=== PATIENT | male | born 1980 | race Caucasian/White ===

== ENCOUNTER 2021-09-04 07:14 | Outpatient (REF) | payer OTHER, SELFPAY ==
[2021-09-04 11:30] LABS: Appearance Urine CLEAR; Color Urine YELLOW; Glucose Urine UA NEG (NEG); Leukocyte Esterase Urine NEG (NEG); Nitrite Urine NEG (NEG); Urine Blood NEG (NEG); Urine Ketones NEG (NEG); Urine Protein NEG (NEG-TRACE)
[2021-09-04 11:56] LABS: Alanine Aminotransferase 47 U/L (0-40); Albumin Level 4.3 g/dL (3.5-5.0); Alkaline Phosphatase 54 U/L (39-117); Anion Gap 10 (12-20); Aspartate Amino Transferase 28 U/L (5-37); Bilirubin Total 0.5 mg/dL (0.0-1.0); Blood Urea Nitrogen 14 mg/dL (9-16); Calcium 10.1 mg/dL (8.4-10.2); Carbon Dioxide 29 mmol/L (22-29); Chloride 104 mmol/L (96-108); Cholesterol 182 mg/dL; Estimated Glomerular Filt Rate > 60; Glucose Fasting 151 mg/dL (60-99); HDL Cholesterol 41 mg/dL; LDL Cholesterol Calculated 111 mg/dl; Potassium 4.1 mmol/L (3.3-5.1); Sodium 139 mmol/L (135-145); Total Protein 6.9 g/dL (6.5-8.0); Triglycerides 154 mg/dL
== END 2021-09-04 07:15 | disposition home or self-care (01) ==
LOC: HO.WFDLDS 07:14
PROVIDERS: PCP Nurse Practitioner Family; Visit Provider Nurse Practitioner Family
DX: Z00.00 Encounter for general adult medical examination without abnormal findings (principal)
CPT/HCPCS: 36415; 80053; 80061; 81003; 84443

== ENCOUNTER 2021-11-16 09:11 | Outpatient (REF) | payer OTHER, SELFPAY ==
[2021-11-16 11:19] LABS: Appearance Urine CLEAR; Color Urine YELLOW; Glucose Urine UA NEG (NEG); Leukocyte Esterase Urine NEG (NEG); Nitrite Urine NEG (NEG); Specific Gravity - Urine 1.015 (1.005-1.025); Urine Blood NEG (NEG); Urine Ketones NEG (NEG); Urine Protein NEG (NEG-TRACE)
[2021-11-16 11:30] LABS: Estimated Average Glucose 137 mg/dL; Hemoglobin A1c % 6.4 %
[2021-11-16 11:52] LABS: Alanine Aminotransferase 69 U/L (0-40); Albumin Level 4.5 g/dL (3.5-5.0); Alkaline Phosphatase 56 U/L (39-117); Anion Gap 12 (12-20); Aspartate Amino Transferase 34 U/L (5-37); Bilirubin Total 0.6 mg/dL (0.0-1.0); Blood Urea Nitrogen 15 mg/dL (9-16); Calcium 10.1 mg/dL (8.4-10.2); Carbon Dioxide 28 mmol/L (22-29); Chloride 103 mmol/L (96-108); Cholesterol 163 mg/dL; Estimated Glomerular Filt Rate > 60; Glucose Fasting 134 mg/dL (60-99); HDL Cholesterol 40 mg/dL; LDL Cholesterol Calculated 100 mg/dl; Potassium 4.8 mmol/L (3.3-5.1); Sodium 138 mmol/L (135-145); Triglycerides 115 mg/dL
[2021-11-16 11:55] LABS: TSH reflex Free T4 0.51 uIU/mL (0.32-4.0)
== END 2021-11-16 09:12 | disposition home or self-care (01) ==
LOC: HO.HMGCLDS 09:11
PROVIDERS: PCP Nurse Practitioner Family; Visit Provider Nurse Practitioner Family
DX: I10 Essential (primary) hypertension (principal); R73.01 Impaired fasting glucose
CPT/HCPCS: 36415; 80053; 80061; 81003; 83036; 84443

== ENCOUNTER 2021-12-17 08:28 | Outpatient (REF) | payer OTHER, SELFPAY ==
--- NOTE | ~2021-12-17 | US_ITS ---
EXAMINATION: US ABDOMEN COMPLETE CLINICAL INFORMATION: Elevated liver enzymes. COMPARISON: None TECHNIQUE: Real-time imaging of the abdominal viscera. Technically difficult study secondary to bowel gas and body habitus. FINDINGS: PANCREAS: Visualized portions of the pancreas are unremarkable. The pancreatic tail is obscured by bowel gas. ABDOMINAL AORTA: Visualized aorta is normal in caliber however portions are obscured by bowel gas. INFERIOR VENA CAVA: Visualized portions are normal. LIVER: Liver is mildly enlarged measuring 17.1 cm in span. The liver contour is normal. There is diffuse increased liver parenchymal echogenicity, consistent with hepatic steatosis. No focal hepatic lesion. There is no intrahepatic biliary duct dilatation seen. GALLBLADDER: Normal. The gallbladder is physiologically distended without evidence of stones, sludge, polyps, wall thickening or pericholecystic fluid. COMMON BILE DUCT: Normal in caliber measuring 0.6 cm in diameter. RIGHT KIDNEY: 9 mm echogenic foci in the right midpole flow on Doppler imaging. No hydronephrosis or renal calculi. The kidney measures 11.7 cm in maximum dimension. LEFT KIDNEY: Normal. No hydronephrosis. No renal calculi or focal parenchymal lesions. The kidney measures 12.5 cm in maximum dimension. SPLEEN: Normal. The spleen measures 13.6 cm in maximum dimension. FREE FLUID: None. US/US abdomen complete IMPRESSION: A 9 mm echogenic lesion in the right kidney with internal vascularity. Internal vascularity would be atypical for an angiomyolipoma, although this remains a differential consideration. Recommend further elevation with CT or MR renal mass protocol, although ultimately this may remain too small to characterize. Mild hepatomegaly and marked hepatic steatosis.
== END 2021-12-17 08:29 | disposition home or self-care (01) ==
LOC: HO.HMGCX 08:28
PROVIDERS: PCP Nurse Practitioner Family; Visit Provider Nurse Practitioner Family
DX: R74.8 Abnormal levels of other serum enzymes (principal)
CPT/HCPCS: 76700

== ENCOUNTER 2021-12-28 08:21 | Outpatient (REF) | payer OTHER, SELFPAY ==
[2021-12-28 11:47] LABS: Blood Urea Nitrogen 14 mg/dL (9-16); Estimated Glomerular Filt Rate > 60
== END 2021-12-28 08:22 | disposition home or self-care (01) ==
LOC: HO.HMGCLDS 08:21
PROVIDERS: PCP Nurse Practitioner Family; Visit Provider Nurse Practitioner Family
DX: N28.89 Other specified disorders of kidney and ureter (principal)
CPT/HCPCS: 36415; 82565; 84520

== ENCOUNTER 2022-01-02 08:07 | Outpatient (REF) | payer OTHER, SELFPAY ==
--- NOTE | ~2022-01-02 | MR_ITS ---
EXAMINATION: MR ABDOMEN WITHOUT AND WITH CONTRAST CLINICAL INFORMATION: Evaluation of an echogenic lesion in the right kidney noted on a recent ultrasound. COMPARISON: Abdominal ultrasound dated from 12/17/2021. TECHNIQUE: MR abdomen was performed without and with use of 10 mL intravenous Gadavist gadolinium contrast. Postcontrast images are performed in multiphase dynamic sequences. Imaging was performed in 3 planes. FINDINGS: LUNG BASES: The visualized lung bases are unremarkable. LIVER, GALLBLADDER, AND BILIARY TREE: There is signal loss in the opposed-phase dual-echo images, most consistent with hepatic steatosis. Otherwise, the liver is normal in size and shape. No focal liver lesion. Normal gallbladder. No biliary ductal dilatation. PANCREAS: Unremarkable. SPLEEN: Normal. ADRENAL GLANDS: Normal. KIDNEYS AND URETERS: The recently described abnormality in the lateral surface of the midpole of the right kidney appears to correlate with a focal area of fatty indentation/cleft into the cortex (3:9 and 6:12). No other focal renal abnormality. No hydronephrosis. GASTROINTESTINAL TRACT: No bowel obstruction. No ascites or fluid collection. ABDOMINAL WALL: No significant hernia is appreciated. LYMPH NODES: No lymphadenopathy. VASCULAR: Unremarkable. OSSEOUS STRUCTURES: Marrow signal normal. MR/MR abdomen wo/w con IMPRESSION: The abnormality in question appears to correlate with a fatty cleft protruding into the renal cortex, which is a normal anatomic variant. Nevertheless, due to small size of the finding on the ultrasound, there could be a potentially occult abnormality in the MR, and a followup ultrasound in 6-12 months is recommended to ensure stability. Hepatic steatosis.
== END 2022-01-02 08:08 | disposition home or self-care (01) ==
LOC: HO.MRI 08:07
PROVIDERS: Visit Provider Nurse Practitioner Family
DX: N28.89 Other specified disorders of kidney and ureter (principal)
CPT/HCPCS: 74183; A9585

== ENCOUNTER 2022-07-16 07:26 | Outpatient (REF) | payer OTHER, SELFPAY ==
[2022-07-16 11:29] LABS: MANUAL DIFF FLAG NO
[2022-07-16 12:04] LABS: Appearance Urine Turbid; Color Urine Dark Yellow; Glucose Urine UA Negative (Negative); Leukocyte Esterase Urine Negative (Negative); Nitrite Urine Negative (Negative); PH 5.5 (5.0-9.0); Specific Gravity - Urine >= 1.030 (1.005-1.025); Urine Blood Negative (Negative); Urine Ketones Trace mg/dL (Negative); Urine Protein Negative (Neg-Trace)
[2022-07-16 12:18] LABS: Basophils Percent Auto 0.5 % (0-2); Eosinophils Absolute Auto 0.2 X10*3/uL (0.0-0.4); Eosinophils Percent Auto 3.3 % (0-4); Hemoglobin 15.7 g/dl (14.0-18.0); Imm Gran Abs Auto 0.04 X10*3/uL (0.00-0.03); Imm Gran Pct Auto 0.7 % (0.0-0.4); Lymphocytes Absolute Auto 1.9 X10*3/uL (1.2-4.9); Lymphocytes Percent Auto 31.6 % (20-40); Mean Corpuscular HGB Conc 32.7 g/dl (31.0-36.0); Mean Corpuscular Hemoglobin 27.6 pg (27.0-33.0); Mean Corpuscular Volume 84.5 fL (80.0-98.0); Mean Platelet Volume 11.3 fL (9.4-12.4); Monocytes Absolute Auto 0.5 X10*3/uL (0.1-1.2); Monocytes Percent Auto 8.6 % (2-11); Neutrophils Absolute Auto 3.4 x10*3/uL (2.0-8.3); Neutrophils Percent Auto 55.3 % (45-73); Platelet Count 193 X10*3/uL (160-400); Red Blood Count 5.68 X10*6/uL (4.60-5.80); Red Cell Distribution Width 12.2 % (11.0-16.0); White Blood Count 6.1 X10*3/uL (4.8-10.8)
[2022-07-16 12:59] LABS: Alanine Aminotransferase 48 U/L (0-40); Albumin Level 4.4 g/dL (3.5-5.0); Alkaline Phosphatase 55 U/L (39-117); Anion Gap 13 (12-20); Aspartate Amino Transferase 29 U/L (5-37); Bilirubin Total 0.5 mg/dL (0.0-1.0); Blood Urea Nitrogen 16 mg/dL (9-16); Calcium 9.5 mg/dL (8.4-10.2); Carbon Dioxide 27 mmol/L (22-29); Chloride 105 mmol/L (96-108); Cholesterol 184 mg/dL; Estimated Glomerular Filt Rate > 60; Glucose Fasting 180 mg/dL (60-99); Potassium 4.7 mmol/L (3.3-5.1); Sodium 140 mmol/L (135-145); Total Protein 6.8 g/dL (6.5-8.0); Triglycerides 185 mg/dL
[2022-07-16 13:32] LABS: HDL Cholesterol 39 mg/dL; LDL Cholesterol Calculated 108 mg/dl
== END 2022-07-16 07:27 | disposition home or self-care (01) ==
LOC: HO.WFDLDS 07:26
PROVIDERS: Visit Provider Nurse Practitioner Family
DX: N28.89 Other specified disorders of kidney and ureter (principal); R74.8 Abnormal levels of other serum enzymes
CPT/HCPCS: 36415; 80053; 80061; 81003; 84443; 85025

== ENCOUNTER 2022-08-19 16:20 | Outpatient (REF) | payer OTHER, SELFPAY ==
--- NOTE | ~2022-08-19 | US_ITS ---
EXAMINATION: US ABDOMEN COMPLETE CLINICAL INFORMATION: Other specified disorders of the kidney and ureter. COMPARISON: MRI abdomen 01/02/2022. Ultrasound abdomen complete 12/17/2021. TECHNIQUE: Real-time imaging of the abdominal viscera. Technically limited study secondary to bowel gas and body habitus. FINDINGS: PANCREAS: Obscured by overlying bowel gas. ABDOMINAL AORTA: Obscured by overlying bowel gas. INFERIOR VENA CAVA: Visualized portions are normal. LIVER: Liver is enlarged measuring 19.3 cm. The liver contour is normal. There is diffuse increased liver parenchymal echogenicity, consistent with hepatic steatosis. No focal hepatic lesion. There is no intrahepatic biliary duct dilatation seen. GALLBLADDER: Normal. The gallbladder is physiologically distended without evidence of stones, sludge, polyps, wall thickening or pericholecystic fluid. COMMON BILE DUCT: Normal in caliber measuring 0.4 cm in diameter. RIGHT KIDNEY: Upper pole echogenic circumscribed renal mass measures 7 x 8 x 9 mm, avascular in appearance. No hydronephrosis. No renal calculi or focal parenchymal lesions. The kidney measures 10.6 cm in maximum dimension. LEFT KIDNEY: Normal. No hydronephrosis. No renal calculi or focal parenchymal lesions. The kidney measures 11.0 cm in maximum dimension. SPLEEN: Normal. The spleen measures 13.8 cm in maximum dimension. FREE FLUID: None. US/US abdomen complete IMPRESSION: 1. 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 However given vascularity seen on prior ultrasound, recommend continued follow-up to assess for stability. 2. Hepatomegaly with hepatic steatosis.
== END 2022-08-19 16:21 | disposition home or self-care (01) ==
LOC: HO.US 16:20
PROVIDERS: Visit Provider Nurse Practitioner Family
DX: N28.89 Other specified disorders of kidney and ureter (principal); K76.0 Fatty (change of) liver, not elsewhere classified
CPT/HCPCS: 76700

== ENCOUNTER 2022-10-30 09:34 | Outpatient (REF) | payer OTHER, SELFPAY ==
[2022-10-30 11:39] LABS: MANUAL DIFF FLAG NO
[2022-10-30 11:52] LABS: Basophils Percent Auto 0.4 % (0-2); Eosinophils Absolute Auto 0.2 X10*3/uL (0.0-0.4); Eosinophils Percent Auto 2.9 % (0-4); Hematocrit 47.1 % (42.0-52.0); Hemoglobin 16.1 g/dl (14.0-18.0); Imm Gran Abs Auto 0.05 X10*3/uL (0.00-0.03); Imm Gran Pct Auto 0.7 % (0.0-0.4); Lymphocytes Absolute Auto 2.1 X10*3/uL (1.2-4.9); Lymphocytes Percent Auto 29.9 % (20-40); Mean Corpuscular HGB Conc 34.2 g/dl (31.0-36.0); Mean Corpuscular Hemoglobin 28.8 pg (27.0-33.0); Mean Corpuscular Volume 84.1 fL (80.0-98.0); Mean Platelet Volume 11.4 fL (9.4-12.4); Monocytes Absolute Auto 0.5 X10*3/uL (0.1-1.2); Monocytes Percent Auto 6.9 % (2-11); Neutrophils Absolute Auto 4.1 x10*3/uL (2.0-8.3); Neutrophils Percent Auto 59.2 % (45-73); Platelet Count 187 X10*3/uL (160-400); Red Cell Distribution Width 11.7 % (11.0-16.0); White Blood Count 6.9 X10*3/uL (4.8-10.8)
[2022-10-30 12:00] LABS: Estimated Average Glucose 177 mg/dL; Hemoglobin A1c % 7.8 %
[2022-10-30 12:28] LABS: Alanine Aminotransferase 69 U/L (0-40); Albumin Level 4.6 g/dL (3.5-5.0); Alkaline Phosphatase 64 U/L (39-117); Anion Gap 13 (12-20); Aspartate Amino Transferase 36 U/L (5-37); Bilirubin Total 0.7 mg/dL (0.0-1.0); Blood Urea Nitrogen 16 mg/dL (9-16); Calcium 9.9 mg/dL (8.4-10.2); Carbon Dioxide 28 mmol/L (22-29); Chloride 103 mmol/L (96-108); Estimated Glomerular Filt Rate > 60; Glucose Fasting 176 mg/dL (60-99); Potassium 4.7 mmol/L (3.3-5.1); Sodium 139 mmol/L (135-145); TSH reflex Free T4 0.75 uIU/mL (0.32-4.0)
== END 2022-10-30 09:35 | disposition home or self-care (01) ==
LOC: HO.HMGCLDS 09:34
PROVIDERS: PCP Nurse Practitioner Family; Visit Provider Nurse Practitioner Family
DX: E11.9 Type 2 diabetes mellitus without complications (principal)
CPT/HCPCS: 36415; 80053; 83036; 84443; 85025

== ENCOUNTER 2022-12-02 07:49 | Outpatient (REF) | payer OTHER, SELFPAY ==
--- NOTE | ~2022-12-02 | CT_ITS ---
EXAMINATION: CT ABDOMEN AND PELVIS WITHOUT AND WITH CONTRAST CLINICAL INFORMATION: Other specified disorder of kidney and ureter COMPARISON: Previous abdominal ultrasound August 26 and MR of the abdomen January 2022 TECHNIQUE: Multidetector volumetric imaging was performed of the abdomen and pelvis before and after the IV administration of 85 mL of Omnipaque 300 intravenous contrast. Sagittal and coronal reformatted images were obtained on the technologist's workstation. This CT examination was performed using dose optimization techniques as appropriate, variously including the following: *Automated exposure control *Adjustment of mA and/or kV according to patient size (this includes techniques or standardized protocols for targeted exams where dose is matched to indication/reason for exam; i.e. extremities or head) *Use of iterative reconstruction technique DLP: 1260 mGy-cm FINDINGS: LUNG BASES: 3 mm calcified left lower lobe nodule probably representing a calcified granuloma. LIVER, GALLBLADDER, AND BILIARY TREE: fatty liver. No focal liver lesion. Normal gallbladder. No biliary duct dilatation. PANCREAS: Unremarkable SPLEEN: Unremarkable ADRENAL GLANDS: Unremarkable KIDNEYS AND URETERS: The kidneys are normal in size, shape, and attenuation. No hydronephrosis, hydroureter, or calculi seen. Junctional parenchymal defect in the right kidney. This likely accounts for ultrasound finding. No renal mass. No perinephric stranding. BLADDER: Unremarkable GASTROINTESTINAL TRACT: Postsurgical changes from gastric bypass. Mild diverticulosis of the colon. The small and large bowel are otherwise unremarkable. The appendix is unremarkable. ABDOMINAL WALL: Small umbilical hernia containing fat. Small left inguinal hernia containing fat. LYMPH NODES: Normal VASCULAR: Unremarkable PELVIC VISCERA: Unremarkable OSSEOUS STRUCTURES: Mild degenerative changes of the spine. CT/CT abdomen pelvis wo/w IV con IMPRESSION: Normal variant junctional parenchymal defect in the right kidney. No renal mass. Fatty liver. Postsurgical changes following gastric bypass. Mild diverticulosis of the colon. Fleischner guidelines were followed.
[2022-12-02] MEDS: iohexoL 350 MG/ML 100 ML INFUS..BTL IV (08:46)
[2022-12-02 13:14] LABS: Creatinine POC 0.6 mg/dL (0.5-1.4); GFR POC > 60
== END 2022-12-02 07:50 | disposition home or self-care (01) ==
LOC: HO.CT 07:49
PROVIDERS: PCP Nurse Practitioner Family; Visit Provider Nurse Practitioner Family
DX: N28.89 Other specified disorders of kidney and ureter (principal); E11.9 Type 2 diabetes mellitus without complications
CPT/HCPCS: 74178; 82565; Q9967

== ENCOUNTER 2023-01-27 08:16 | Outpatient (REF) | payer OTHER, SELFPAY ==
[2023-01-27 11:16] LABS: MANUAL DIFF FLAG NO
[2023-01-27 11:32] LABS: Appearance Urine Clear; Color Urine Yellow; Glucose Urine UA Negative (Negative); Leukocyte Esterase Urine Negative (Negative); Nitrite Urine Negative (Negative); Specific Gravity - Urine 1.015 (1.005-1.025); Urine Blood Negative (Negative); Urine Ketones Negative (Negative); Urine Protein Negative (Neg-Trace)
[2023-01-27 11:50] LABS: Basophils Percent Auto 0.6 % (0-2); Eosinophils Absolute Auto 0.2 X10*3/uL (0.0-0.4); Eosinophils Percent Auto 3.1 % (0-4); Hematocrit 46.2 % (42.0-52.0); Hemoglobin 15.6 g/dl (14.0-18.0); Imm Gran Abs Auto 0.05 X10*3/uL (0.00-0.03); Imm Gran Pct Auto 0.7 % (0.0-0.4); Lymphocytes Percent Auto 28.4 % (20-40); Mean Corpuscular HGB Conc 33.8 g/dl (31.0-36.0); Mean Corpuscular Hemoglobin 28.8 pg (27.0-33.0); Mean Corpuscular Volume 85.2 fL (80.0-98.0); Mean Platelet Volume 11.7 fL (9.4-12.4); Monocytes Absolute Auto 0.7 X10*3/uL (0.1-1.2); Monocytes Percent Auto 9.2 % (2-11); Neutrophils Absolute Auto 4.1 x10*3/uL (2.0-8.3); Platelet Count 184 X10*3/uL (160-400); Red Blood Count 5.42 X10*6/uL (4.60-5.80); Red Cell Distribution Width 12.3 % (11.0-16.0)
[2023-01-27 12:18] LABS: Alanine Aminotransferase 55 U/L (0-40); Albumin Level 4.4 g/dL (3.5-5.0); Alkaline Phosphatase 50 U/L (39-117); Anion Gap 13 (12-20); Aspartate Amino Transferase 28 U/L (5-37); Bilirubin Total 0.7 mg/dL (0.0-1.0); Blood Urea Nitrogen 12 mg/dL (9-16); Calcium 10.1 mg/dL (8.4-10.2); Carbon Dioxide 28 mmol/L (22-29); Chloride 104 mmol/L (96-108); Cholesterol 95 mg/dL; Estimated Glomerular Filt Rate > 60; Glucose Fasting 129 mg/dL (60-99); HDL Cholesterol 38 mg/dL; LDL Cholesterol Calculated 29 mg/dl; Potassium 4.5 mmol/L (3.3-5.1); Sodium 140 mmol/L (135-145); Total Protein 6.8 g/dL (6.5-8.0); Triglycerides 140 mg/dL
[2023-01-27 12:21] LABS: Microalbumin Urine < 5.0 mg/L
[2023-01-27 12:26] LABS: TSH reflex Free T4 0.66 uIU/mL (0.32-4.0)
== END 2023-01-27 08:17 | disposition home or self-care (01) ==
LOC: HO.WFDLDS 08:16
PROVIDERS: Visit Provider Nurse Practitioner Family
DX: E11.9 Type 2 diabetes mellitus without complications (principal)
CPT/HCPCS: 36415; 80053; 80061; 81003; 82043; 84443; 85025

== ENCOUNTER 2023-05-27 07:50 | Outpatient (REF) | payer OTHER, SELFPAY ==
[2023-05-27 11:13] LABS: MANUAL DIFF FLAG NO
[2023-05-27 11:33] LABS: Basophils Percent Auto 0.4 % (0-2); Eosinophils Absolute Auto 0.2 X10*3/uL (0.0-0.4); Eosinophils Percent Auto 2.4 % (0-4); Hematocrit 47.3 % (42.0-52.0); Hemoglobin 15.7 g/dl (14.0-18.0); Imm Gran Abs Auto 0.04 X10*3/uL (0.00-0.03); Imm Gran Pct Auto 0.6 % (0.0-0.4); Lymphocytes Absolute Auto 1.8 X10*3/uL (1.2-4.9); Lymphocytes Percent Auto 25.6 % (20-40); Mean Corpuscular HGB Conc 33.2 g/dl (31.0-36.0); Mean Corpuscular Hemoglobin 28.1 pg (27.0-33.0); Mean Corpuscular Volume 84.8 fL (80.0-98.0); Mean Platelet Volume 11.1 fL (9.4-12.4); Monocytes Absolute Auto 0.6 X10*3/uL (0.1-1.2); Monocytes Percent Auto 8.5 % (2-11); Neutrophils Absolute Auto 4.5 x10*3/uL (2.0-8.3); Neutrophils Percent Auto 62.5 % (45-73); Platelet Count 200 X10*3/uL (160-400); Red Blood Count 5.58 X10*6/uL (4.60-5.80); Red Cell Distribution Width 12.1 % (11.0-16.0); White Blood Count 7.2 X10*3/uL (4.8-10.8)
[2023-05-27 11:48] LABS: Alanine Aminotransferase 60 U/L (0-40); Albumin Level 4.5 g/dL (3.5-5.0); Alkaline Phosphatase 52 U/L (39-117); Anion Gap 13 (12-20); Aspartate Amino Transferase 33 U/L (5-37); Bilirubin Total 0.6 mg/dL (0.0-1.0); Blood Urea Nitrogen 13 mg/dL (9-16); Carbon Dioxide 27 mmol/L (22-29); Chloride 103 mmol/L (96-108); Cholesterol 97 mg/dL (<200); Estimated Glomerular Filt Rate > 60; Glucose Fasting 134 mg/dL (60-99); HDL Cholesterol 41 mg/dL (>40); LDL Cholesterol Calculated 36 mg/dL (<100); Potassium 4.3 mmol/L (3.3-5.1); Sodium 139 mmol/L (135-145); Total Protein 7.2 g/dL (6.5-8.0); Triglycerides 102 mg/dL (<150)
[2023-05-27 12:13] LABS: TSH reflex Free T4 0.64 uIU/mL (0.32-4.0)
== END 2023-05-27 07:51 | disposition home or self-care (01) ==
LOC: HO.WFDLDS 07:50
PROVIDERS: Visit Provider Nurse Practitioner Family
DX: E11.9 Type 2 diabetes mellitus without complications (principal)
CPT/HCPCS: 36415; 80053; 80061; 84443; 85025

== ENCOUNTER 2023-05-28 07:34 | Outpatient (REF) | payer OTHER, SELFPAY ==
[2023-05-28 11:39] LABS: Appearance Urine Clear; Color Urine Yellow; Glucose Urine UA Negative (Negative); Leukocyte Esterase Urine Negative (Negative); Nitrite Urine Negative (Negative); Urine Blood Negative (Negative); Urine Ketones Negative (Negative); Urine Protein Negative (Neg-Trace)
[2023-05-28 12:40] LABS: Creatinine Urine 149.07 mg/dL
== END 2023-05-28 07:35 | disposition home or self-care (01) ==
LOC: HO.WFDLDS 07:34
PROVIDERS: Visit Provider Nurse Practitioner Family
DX: E11.9 Type 2 diabetes mellitus without complications (principal)
CPT/HCPCS: 81003; 82043; 82570

== ENCOUNTER 2023-05-29 07:56 | Outpatient (AMB) | payer OTHER, SELFPAY ==
--- NOTE | 2023-05-29 07:57 | MHC.PC.OV ---
Vital Signs 05/29/23 08:01 Height 5 ft 9 in Weight 232 lb BMI 34.3 BP 118/80 Blood Pressure Location Lt brachial Position Sitting Pulse 68 Pulse Source Pulse Oximeter Pulse Oximetry (%) 98 Oxygen Delivery Method Room Air Intake Visit Reasons: annual PE/overdue Allergies morphine Allergy (Unknown, Verified 05/29/23 08:01) Skin flushing/hot/vomiting, vomiting Medication List - Last Reconciled 05/29/23 by HARISH Morales Alcohol Prep Pads (alcohol swabs) 1 topically; NS blood-glucose meter,continuous (Dexcom G6 Strategic Client Executive) Use to monitor blood sugars throughout the day/night blood-glucose sensor (Dexcom G6 Sensor device) Use to monitor blood sugars throughout the day/night blood-glucose transmitter (Dexcom G6 Transmitter device) Use to monitor blood sugars throughout the day/night FreeStyle Lancets (lancets) TID testing NS FreeStyle Lite Meter (blood-glucose meter) TID testing NS FreeStyle Lite Strips (blood sugar diagnostic) TID testing NS lisinopril 5 mg PO DAILY 90 days metformin 500 mg PO BID rosuvastatin 5 mg PO DAILY 90 days semaglutide (Ozempic) 0.5 mg (0.736 mL) subcut QWEEK sertraline 100 mg PO DAILY 90 days Tobacco use date assessed: 01/28/23 Dental Screening Dental Screen Date: 05/29/23 Did you have a dental visit in the last 12 months?: Yes Did you have a dental problem in the last 6 months where you did not have access to dental care?: No Was dental information given to patient?: Patient has dentist HPI annual PE/overdue HPI Details Pt is here for a PE. Labs were already performed. Pt is a diabetic, on an HAIM and a statin. A1C in office today is 6.4. Microalbumin is up to date. Denies polyuria, polydipsia, and neuropathy. Pt denies any signs and symptoms of hypoglycemia and does know how to correct it. awaiting CT Coronary angio order, both parents with MIs, mother at age 33, grandfather [place] at age 50, father age 40. Labs already performed, Hx of fatty liver. [facility] Social History Housing: House Patient Tobacco Use Status: Never used Tobacco e-Cigarette/Vaping Use: Never Used Second Hand Smoke Exposure: No service: No Current occupational status: employed Current occupation: [employer] Current occupational exposures/hazards: No Cognitive needs: No Hearing needs: No Vision needs: No Questionnaire AUDIT C Alcohol Use Questionnaire (AUDIT-C) 1. How often do you have a drink containing alcohol?: Monthly or less 2. How many drinks containing alcohol do you have on a typical day when you are drinking?: 1 or 2 3. How often do you have six or more drinks on one occasion?: Never Total Score: 1 Score Reviewed/Action Taken: No Review of Systems Const Denies chills and Denies fever(s) Eyes Denies blurry vision ENT Denies vertigo, Denies dizziness and Denies sore throat Card Denies chest pain at rest, Denies chest pain with activity, Denies diaphoresis, Denies dyspnea and Denies dyspnea on exertion Resp Denies cough, Denies dyspnea, Denies dyspnea on exertion and Denies wheezing GI Denies abdominal pain, Denies melena, Denies hematochezia, Denies constipation, Denies diarrhea and Denies loose stools Denies hematuria Musc Denies numbness and Denies tingling Skin/Breast Denies lesions Neuro Denies vertigo, Denies dizziness, Denies numbness and Denies tingling Psych Denies anxiety, Denies depression, Denies homicidal ideation, Denies suicidal ideation and Denies other (substance abuse) Aller/Immun Denies wheezing Physical exam (Primary Care) Vital Signs: Last Vital Signs Pulse 68 05/29/23 08:01 BP 118/80 05/29/23 08:01 Pulse Ox 98 05/29/23 08:01 Oxygen Delivery Method Room Air 05/29/23 08:01 BMI result Body Mass Index 34.3 Tobacco/Smoking Status: Tobacco use Status Tobacco use date assessed 01/28/23 05/29/23 08:00 Patient Tobacco Use Status Never used Tobacco 05/29/23 08:00 e-Cigarette/Vaping Use Never Used 05/29/23 08:00 Const General: cooperative Nutritional Appearance: obese Orientation/consciousness: patient oriented x3 HENMT Head: Yes normal to inspection, Yes normocephalic and Yes atraumatic Ears: TM's normal bilaterally Eyes General: appearance normal, both eyes and all related structures Alignment and Position: alignment normal and position normal Neck Neck: Yes normal visual inspection and Yes no lymphadenopathy Thyroid: Thyroid normal Resp Effort & Inspection: normal respiratory effort Auscultation: clear to auscultation bilaterally Cardio Rate: regular rate Rhythm: regular rhythm Heart sounds: S1 normal heart sound present, S2 normal heart sound present and no murmurs GI Palpation (GI): Soft to palpation and nontender Auscultation: normal bowel sounds Male General Exam: Yes normal external exam Penis: normal penis Scrotum: scrotum normal, testes descended bilaterally and no inguinal hernias Testes: no testicular mass Skin Other: feet are intact, + sensation with us eof monofilament Rashes: no rashes Neuro General: patient oriented x3, moves all extremities, no focal motor deficits and deep tendon reflexes 2+ bilaterally Romberg Test: Negative Psych Appearance: grossly normal Mental Status: mental status grossly normal Speech and movement: Normal speech and movement present Affect: normal affect Attitude: cooperative Thought process: Normal thought process present Thought content: Normal thought content present Insight: Good insight present (Psych) Judgement: Good judgement present (Psych) Results AMB Hemoglobin A1c AMB Hemoglobin A1c 6.4 % Last Edit by SHARLA Dorsey on 05/29/23 08:16 Results Reviewed Results Reviewed: Laboratory Last Values Hgb A1c (Clinic) 6.4 % (4.0-6.0) H 05/29/23 08:15 Assessment and Plan Assessment & Plan (1) Fatty liver: Code(s): K76.0 - Fatty (change of) liver, not elsewhere classified Plan: Continue to work on diet and limit alcohol use (2) Diabetes: Code(s): E11.9 - Type 2 diabetes mellitus without complications Plan: A1C done in office (3) Family history of [place] (myocardial infarction): Code(s): Z82.49 - Family history of ischemic heart disease and other diseases of the circulatory system Plan: Awaiting CT coronary angio (4) Physical exam: Code(s): Z00.00 - Encounter for general adult medical examination without abnormal findings Plan The patient agreed to the use of a medical microbiologist for this encounter. Scribed for HARISH Dietrich by isabelle Pedroza scribe, on 05/29/2023 at 08:10 EST Orders: Orders AMB Hemoglobin A1c Today Z13.9 - Encounter for screening, unspecified Coding Level of Care Code Est Pt Prev Care 40-64y(91644) Diagnoses Fatty liver K76.0 Diabetes E11.9 Family history of [place] (myocardial infarction) Z82.49 Physical exam Z00.00
[2023-05-29 08:01] VITALS: BP 118/80; PULSE 68; O2SAT 98; BMI 34.3
== END 2023-05-29 08:33 | disposition home or self-care (01) ==
PROVIDERS: PCP Nurse Practitioner Family; Visit Provider Nurse Practitioner Family
DX: Z00.00 Encounter for general adult medical examination without abnormal findings (principal); E11.9 Type 2 diabetes mellitus without complications; K76.0 Fatty (change of) liver, not elsewhere classified; Z82.49 Family history of ischemic heart disease and other diseases of the circulatory system
CPT/HCPCS: 83036; 99396

== ENCOUNTER 2023-12-22 07:10 | Outpatient (AMB) | payer BC, SELFPAY ==
--- NOTE | 2023-12-22 07:03 | MHC.PC.OV ---
Intake Visit Reasons: Follow up Allergies morphine Allergy (Unknown, Verified 12/22/23 07:16) Skin flushing/hot/vomiting, vomiting Medication List - Last Reconciled 12/22/23 by HARISH Morales Alcohol Prep Pads (alcohol swabs) 1 topically; NS blood-glucose meter,continuous (Dexcom G6 Feather Duster Winder) Use to monitor blood sugars throughout the day/night blood-glucose sensor (Dexcom G6 Sensor device) Use to monitor blood sugars throughout the day/night blood-glucose transmitter (Dexcom G6 Transmitter device) Use to monitor blood sugars throughout the day/night FreeStyle Lancets (lancets) TID testing NS FreeStyle Lite Meter (blood-glucose meter) TID testing NS FreeStyle Lite Strips (blood sugar diagnostic) TID testing NS lisinopril 5 mg PO DAILY 90 days metformin 500 mg PO BID rosuvastatin 5 mg PO DAILY 90 days semaglutide (Ozempic) 0.5 mg (0.736 mL) subcut QWEEK venlafaxine 100 mg PO DAILY Tobacco use date assessed: 01/28/23 Dental Screening Dental Screen Date: 05/29/23 HPI Follow up HPI Details Pt is a diabetic, on an HAIM and a statin. Last A1C was 6.4, due for repeat. Microalbumin is up to date. Denies polyuria, polydipsia, and neuropathy. Pt denies any signs and symptoms of hypoglycemia and does know how to correct it. Pt reports that his blood sugar has been well-controlled. Will order labs. Pt is currently on effexor for anxiety/depression. He reports doing well on this med. He recently started a new job. Denies any SI and HI. pt is seeing a psychiatrist, did not connect with therapist he was assigned to, will consider restarting therapy in the future. [facility] Social History Housing: House Patient Tobacco Use Status: Never used Tobacco e-Cigarette/Vaping Use: Never Used Second Hand Smoke Exposure: No service: No Current occupational status: employed Current occupation: [employer] Current occupational exposures/hazards: No Cognitive needs: No Hearing needs: No Vision needs: No Review of Systems Const Reports as per HPI Physical exam (Primary Care) Tobacco/Smoking Status: Tobacco use Status Tobacco use date assessed 01/28/23 12/22/23 07:05 Patient Tobacco Use Status Never used Tobacco 12/22/23 07:05 e-Cigarette/Vaping Use Never Used 12/22/23 07:05 Const General: cooperative Orientation/consciousness: patient oriented x3 Neuro General: patient oriented x3 Psych Appearance: grossly normal Mental Status: mental status grossly normal Speech and movement: Clear speech present Affect: normal affect Attitude: cooperative Thought process: Normal thought process present Thought content: Normal thought content present Insight: Good insight present (Psych) Judgement: Good judgement present (Psych) Telehealth Telehealth Telehealth Platform: [employer] Location of provider rendering services: practice address Location of patient: address on file Patient Identification confirmed using: Name, : Yes Telehealth method: video Patient verbally consented to treatment: Yes Patient verbally consented to billing insurance company: Yes Patient informed of any privacy concerns related to visit: Yes Minutes spent on Phone/Video with Pt.: 10 Assessment and Plan Assessment & Plan (1) Diabetes: Code(s): E11.9 - Type 2 diabetes mellitus without complications Plan: Labs ordered (2) Anxiety and depression: Code(s): F41.9 - Anxiety disorder, unspecified; F32.9 - Major depressive disorder, single episode, unspecified Plan: on effexor, tolerating medication well, has a psychiatrist Plan The patient agreed to the use of a senior medical transcriptionist for this encounter. Scribed for HARISH Dietrich by Katie Ann senior medical transcriptionist, on 12/22/2023 at 07:05 EST. Orders: Orders Complete Blood Count Auto Diff Today E11.9 - Type 2 diabetes mellitus without complications Comprehensive [place]. Panel Fast Today E11.9 - Type 2 diabetes mellitus without complications TSH reflex Free T4 Today E11.9 - Type 2 diabetes mellitus without complications Lipid Panel Today E11.9 - Type 2 diabetes mellitus without complications UA CC w/rflx Micro + Cult Today E11.9 - Type 2 diabetes mellitus without complications Hemoglobin A1c Today E11.9 - Type 2 diabetes mellitus without complications Medications: Refilled blood-glucose transmitter (Dexcom G6 Transmitter device) Use to monitor blood sugars throughout the day/night 1 ea 1RF E11.9 - Type 2 diabetes mellitus without complications semaglutide (Ozempic) 0.5 mg (0.736 mL) subcut QWEEK 9 mL 1RF blood-glucose meter,continuous (Dexcom G6 Feather Duster Winder) Use to monitor blood sugars throughout the day/night 1 ea 0RF E11.9 - Type 2 diabetes mellitus without complications blood-glucose sensor (Dexcom G6 Sensor device) Use to monitor blood sugars throughout the day/night 3 ea 5RF E11.9 - Type 2 diabetes mellitus without complications lisinopril 5 mg PO DAILY 90 days 90 tabs 1RF metformin 500 mg PO BID 180 tabs 1RF rosuvastatin 5 mg PO DAILY 90 days 90 tabs 1RF Discontinued sertraline Discontinued Reason: Doctor's Order 100 mg PO DAILY 90 days 90 tabs 1RF Coding Level of Care Code Tele Est Pt Level 3 (99544) Diagnoses Diabetes E11.9 Anxiety and depression F41.9; F32.9
== END 2023-12-22 09:17 | disposition home or self-care (01) ==
LOC: HO.HMGC 07:10
PROVIDERS: PCP Nurse Practitioner Family; Visit Provider Nurse Practitioner Family
DX: E11.9 Type 2 diabetes mellitus without complications (principal); F41.9 Anxiety disorder, unspecified; F32.9 Major depressive disorder, single episode, unspecified
CPT/HCPCS: 99213

== ENCOUNTER 2024-03-11 08:18 | Outpatient (AMB) | payer OTHER, BC, SELFPAY ==
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
[2024-03-11 08:54] VITALS: BP 114/80; PULSE 81; TEMP 37; O2SAT 98; BMI 34.3
== END 2024-03-11 09:19 | disposition home or self-care (01) ==
PROVIDERS: PCP Nurse Practitioner Family; Visit Provider Physician Assistant
DX: G44.311 Acute post-traumatic headache, intractable (principal); V89.2XXA Person injured in unspecified motor-vehicle accident, traffic, initial encounter
CPT/HCPCS: 99214

== ENCOUNTER 2024-03-11 09:37 | Emergency (ER) | payer OTHER, BC, SELFPAY ==
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
[2024-03-11 09:51] VITALS: BP 152/91; PULSE 79; RESP 16; TEMP 36.5; O2SAT 98; BMI 33.3
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
[2024-03-11] MEDS: Acetaminophen 325 MG TABLET 975 MG PO (11:19)
[2024-03-11] MEDS: Butalb/Acetamin/Caff 50/325/40 TABLET 1 TAB PO (14:07)
[2024-03-11 14:16] VITALS: BP 152/91; PULSE 79; RESP 16; TEMP 36.5; O2SAT 98
== END 2024-03-11 14:17 | disposition home or self-care (01) ==
PROVIDERS: Emergency Provider Student in an Organized Health Care Education/Training Program; PCP Nurse Practitioner Family
DX: S09.90XA Unspecified injury of head, initial encounter (principal); V43.52XA Car driver injured in collision with other type car in traffic accident, initial encounter; Y93.89 Activity, other specified; Y92.410 Unspecified street and highway as the place of occurrence of the external cause; Y99.9 Unspecified external cause status
CPT/HCPCS: 70450; 99283; 99284

== ENCOUNTER 2024-05-03 09:34 | Outpatient (REF) | payer OTHER, BC, SELFPAY ==
[2024-05-03 13:20] LABS: MANUAL DIFF FLAG NO
[2024-05-03 13:26] LABS: Basophils Percent Auto 0.4 % (0-2); Eosinophils Absolute Auto 0.2 X10*3/uL (0.0-0.4); Eosinophils Percent Auto 2.7 % (0-4); Hematocrit 48.5 % (42.0-52.0); Hemoglobin 16.1 g/dl (14.0-18.0); Imm Gran Abs Auto 0.04 X10*3/uL (0.00-0.03); Imm Gran Pct Auto 0.6 % (0.0-0.4); Lymphocytes Percent Auto 29.9 % (20-40); Mean Corpuscular HGB Conc 33.2 g/dl (31.0-36.0); Mean Corpuscular Hemoglobin 28.8 pg (27.0-33.0); Mean Corpuscular Volume 86.8 fL (80.0-98.0); Mean Platelet Volume 11.1 fL (9.4-12.4); Monocytes Absolute Auto 0.5 X10*3/uL (0.1-1.2); Monocytes Percent Auto 7.1 % (2-11); Neutrophils Percent Auto 59.3 % (45-73); Platelet Count 196 X10*3/uL (160-400); Red Blood Count 5.59 X10*6/uL (4.60-5.80); Red Cell Distribution Width 12.1 % (11.0-16.0); White Blood Count 6.7 X10*3/uL (4.8-10.8)
[2024-05-03 13:42] LABS: Estimated Average Glucose 143 mg/dL; Hemoglobin A1c % 6.6 % (<6.0)
[2024-05-03 14:01] LABS: Alanine Aminotransferase 74 U/L (0-40); Albumin Level 4.6 g/dL (3.5-5.0); Alkaline Phosphatase 52 U/L (39-117); Anion Gap 13 (12-20); Aspartate Amino Transferase 36 U/L (5-37); Bilirubin Total 0.7 mg/dL (0.0-1.0); Blood Urea Nitrogen 15 mg/dL (9-16); Calcium 10.3 mg/dL (8.4-10.2); Carbon Dioxide 28 mmol/L (22-29); Chloride 105 mmol/L (96-108); Cholesterol 106 mg/dL (<200); Estimated Glomerular Filt Rate > 60; Glucose Fasting 146 mg/dL (60-99); HDL Cholesterol 41 mg/dL (>40); LDL Cholesterol Calculated 40 mg/dL (<100); Sodium 141 mmol/L (135-145); TSH reflex Free T4 0.42 uIU/mL (0.32-4.0); Total Protein 7.2 g/dL (6.5-8.0); Triglycerides 129 mg/dL (<150)
== END 2024-05-03 09:35 | disposition home or self-care (01) ==
LOC: HO.HMGCLDS 09:34
PROVIDERS: PCP Nurse Practitioner Family; Visit Provider Nurse Practitioner Family
DX: E11.9 Type 2 diabetes mellitus without complications (principal)
CPT/HCPCS: 36415; 80053; 80061; 83036; 84443; 85025

== ENCOUNTER 2024-05-05 07:15 | Outpatient (REF) | payer BC, SELFPAY ==
[2024-05-05 10:08] LABS: Appearance Urine Clear; Color Urine Yellow; Glucose Urine UA Negative (Negative); Leukocyte Esterase Urine Negative (Negative); Nitrite Urine Negative (Negative); Urine Blood Negative (Negative); Urine Ketones Negative (Negative); Urine Protein Negative (Neg-Trace)
== END 2024-05-05 07:16 | disposition home or self-care (01) ==
LOC: HO.HMGCLNP 07:15
PROVIDERS: PCP Nurse Practitioner Family; Visit Provider Nurse Practitioner Family
DX: E11.9 Type 2 diabetes mellitus without complications (principal); K76.0 Fatty (change of) liver, not elsewhere classified; Z79.899 Other long term (current) drug therapy; Z71.3 Dietary counseling and surveillance
CPT/HCPCS: 81003; 96127

== ENCOUNTER 2024-05-05 07:55 | Outpatient (AMB) | payer OTHER, BC, SELFPAY ==
[2024-05-05 07:57] VITALS: BP 118/80; PULSE 80; O2SAT 97; BMI 34.4
--- NOTE | 2024-05-05 07:57 | MHC.PC.OV ---
Vital Signs 05/05/24 07:57 Height 5 ft 9 in Weight 233 lb BMI 34.4 BP 118/80 Blood Pressure Location Rt brachial Position Sitting Pulse 80 Pulse Source Pulse Oximeter Pulse Oximetry (%) 97 Intake Visit Reasons: 4M F/U Intake Note: pt is here for 4 month follow up Allergies morphine Allergy (Unknown, Verified 05/05/24 07:58) Skin flushing/hot/vomiting, vomiting Tobacco use date assessed: 05/05/24 Dental Screening Dental Screen Date: 05/05/24 Did you have a dental visit in the last 12 months?: Yes Did you have a dental problem in the last 6 months where you did not have access to dental care?: No Was dental information given to patient?: Patient has dentist HPI 4M F/U HPI Details Pt is a diabetic, on an HAIM and a statin. Last A1C was 6.6. Due for microalbumin in the near future. Denies polyuria, polydipsia, and neuropathy. Pt denies any signs and symptoms of hypoglycemia and does know how to correct it. Pt will schedule his own eye exam. Pt's liver enzymes were elevated. Hx of fatty liver. Pt is working on his diet. [facility] Surgical History No pertinent past surgical history Social History Housing: House Patient Tobacco Use Status: Never used Tobacco e-Cigarette/Vaping Use: Never Used Second Hand Smoke Exposure: No service: No Current occupational status: employed Current occupation: [employer] Current occupational exposures/hazards: No Cognitive needs: No Hearing needs: No Vision needs: No Questionnaire PHQ-9 Over the last 2 weeks, how often have you been bothered by any of the following problems? 1. Little interest or pleasure in doing things: several days 2. Feeling down, depressed, or hopeless: several days 3. Trouble falling or staying asleep, or sleeping too much: more than half the days 4. Feeling tired or having little energy: more than half the days 5. Poor appetite or overeating: more than half the days 6. Feeling bad about yourself - or that you are a failure or have let yourself or your family down: not at all 7. Trouble concentrating on things, such as reading the newspaper or watching television: several days 8. Moving or speaking so slowly that other people could have noticed. Or the opposite - being so fidgety or restless that you have been moving around a lot more than usual: not at all 9. Thoughts that you would be better off or of hurting yourself in some way: not at all Total score: 9 Depression Screening Interpretation: Negative Depression Screening Done: Yes 98829 - PHQ-9 Billing: Yes (has a psychiatrist, working on a therapist, denies any si or hi. [employer]) Source: Developed by Drs. Matt Nicholson, Britt Guillermo, Adis Alvarez and colleagues, with an educational sandy from [employer]. Thrive Questionnaire Date Thrive assessed: 05/05/24 I am a: Patient What is your living situation today?: I have a steady place to live Within the past 12 months, did the food you bought not last and you didn't have the money to get more?: Never true Within the past 12 months, did you worry whether your food would run out before you got money to buy more?: Never true Do you have trouble paying for medicines?: No Do you have trouble getting transportation to medical appointments?: No Do you have trouble paying your heating and electricity bill?: No Do you have trouble taking care of your child, family member or friend?: No Do you have trouble with day-to-day activities such as bathing, preparing meals, shopping, managing finances, etc.?: No Are you interested in more education?: No Please select the resources that you would like help with: None Currently or been in a relationship where the following occur: No concerns reported THRIVE Score: 0 AUDIT C Alcohol Use Questionnaire (AUDIT-C) 1. How often do you have a drink containing alcohol?: 2-4 times a month 2. How many drinks containing alcohol do you have on a typical day when you are drinking?: 1 or 2 3. How often do you have six or more drinks on one occasion?: Never Total Score: 2 Score Reviewed/Action Taken: Yes DEAN-7 AMB Questionnaire DEAN-7 Date DEAN - 7 assessed: 05/05/24 Feeling nervous, anxious, or on edge: 2 = More than half the days Not being able to stop or control worryin = More than half the days Worrying too much about different things: 2 = More than half the days Trouble relaxin = More than half the days Being so restless that it is hard to sit still: 1 = Several days Becoming easily annoyed or irritable: 1 = Several days Feeling afraid as if something awful might happen: 0 = Not at all Total DEAN-7 score (0-4 normal; 5-9 mild; 10-14 moderate; 15-21 severe): 10 Source: Developed by Drs. Matt Nicholson, Britt Guillermo, Adis Alvarez and colleagues, with an educational sandy from [employer]. DEAN-7 Assessment Billing DEAN-7 Assessment Tool: DEAN-7 Assessment 97309 (psychiatrist, working on therapist, tanner) Review of Systems Const Reports as per HPI Physical exam (Primary Care) Vital Signs: Last Vital Signs Pulse 80 05/05/24 07:57 BP 118/80 05/05/24 07:57 Pulse Ox 97 05/05/24 07:57 BMI result Body Mass Index 34.4 Tobacco/Smoking Status: Tobacco use Status Tobacco use date assessed 05/05/24 05/05/24 08:03 Patient Tobacco Use Status Never used Tobacco 05/05/24 07:58 e-Cigarette/Vaping Use Never Used 05/05/24 07:58 PHQ-9: PHQ-9 Score PHQ-9: Total score 9 05/05/24 08:12 Depression Screening Interpretation: Negative Thrive Assessment: Date of Thrive Assessment Date Thrive assessed 05/05/24 05/05/24 08:03 Currently or been in a relationship where the following occur: No concerns reported Const General: cooperative Nutritional Appearance: obese Orientation/consciousness: patient oriented x3 Resp Effort & Inspection: normal respiratory effort Auscultation: clear to auscultation bilaterally Cardio Rate: regular rate Rhythm: regular rhythm Heart sounds: S1 normal heart sound present and S2 normal heart sound present Neuro General: patient oriented x3 Extrem Other: bilat feet: + sensation with use of monofilament, feet intact Psych Appearance: grossly normal Mental Status: mental status grossly normal Speech and movement: Normal speech and movement present Affect: normal affect Attitude: cooperative Thought process: Normal thought process present Thought content: Normal thought content present Insight: Good insight present (Psych) Judgement: Good judgement present (Psych) Coding Level of Care Code Est Pt Level 3 (46228) Diagnoses Diabetes E11.9 Fatty liver K76.0 Additional Codes DEAN-7 Assessment Billing - DEAN-7 Assessment Tool: DEAN-7 Assessment 17380 ([id number]) Assessment & Plan Assessment & Plan (1) Diabetes: Code(s): E11.9 - Type 2 diabetes mellitus without complications Category: Medical Plan: Continue current meds (2) Fatty liver: Code(s): K76.0 - Fatty (change of) liver, not elsewhere classified Category: Medical Plan: Continue to work on diet Plan The patient agreed to the use of a medical director of hospice for this encounter. Scribed for HARISH Dietrich by Katie Ann medical director of hospice, on 05/05/2024 at 08:15 EST. Medications: Changed From venlafaxine 37.5 mg PO DAILY To venlafaxine 37.5 mg PO DAILY 90 days 90 tabs 0RF
== END 2024-05-05 11:48 | disposition home or self-care (01) ==
PROVIDERS: PCP Nurse Practitioner Family; Visit Provider Nurse Practitioner Family
DX: E11.9 Type 2 diabetes mellitus without complications (principal); K76.0 Fatty (change of) liver, not elsewhere classified

== ENCOUNTER → 2024-05-05 07:55 | Outpatient (BNVA) | payer OTHER, BC, SELFPAY | PROVIDERS: PCP Nurse Practitioner Family; Visit Provider Nurse Practitioner Family ==

== ENCOUNTER 2024-06-14 07:30 | Outpatient (AMB) | payer OTHER, BC, SELFPAY ==
--- NOTE | 2024-06-14 07:38 | A.OFFPC_ITS ---
Vital Signs 06/14/24 07:41 Height 5 ft 9 in Weight 228 lb BMI 33.7 BP 110/80 Blood Pressure Location Rt brachial Position Sitting Pulse 81 Pulse Source Pulse Oximeter Pulse Oximetry (%) 97 Oxygen Delivery Method Room Air Intake Visit Reasons: PE Intake Note: Pt is here today for his PE Allergies morphine Allergy (Unknown, Verified 05/05/24 07:58) Skin flushing/hot/vomiting, vomiting Medication List - Last Reconciled 06/14/24 by HARISH Morales Alcohol Prep Pads (alcohol swabs) 1 topically; NS blood-glucose meter,continuous (Dexcom G6 Feeder/Folder) Use to monitor blood sugars throughout the day/night blood-glucose sensor (Dexcom G6 Sensor device) Use to monitor blood sugars throughout the day/night blood-glucose transmitter (Dexcom G6 Transmitter device) Use to monitor blood sugars throughout the day/night clonidine HCl 0.1 mg PO DAILY FreeStyle Lancets (lancets) TID testing NS FreeStyle Lite Meter (blood-glucose meter) TID testing NS FreeStyle Lite Strips (blood sugar diagnostic) TID testing NS lisinopril 5 mg PO DAILY 90 days metformin 500 mg PO BID methylphenidate HCl 5 mg PO DAILY methylphenidate HCl 10 mg PO DAILY rosuvastatin 5 mg PO DAILY 90 days semaglutide (Ozempic) 0.5 mg (0.736 mL) subcut QWEEK sertraline 25 mg PO QAM venlafaxine 37.5 mg PO DAILY 90 days Tobacco use date assessed: 06/14/24 Dental Screening Dental Screen Date: 06/14/24 Did you have a dental visit in the last 12 months?: Yes Did you have a dental problem in the last 6 months where you did not have access to dental care?: Yes Was dental information given to patient?: Patient has dentist HPI PE HPI Details Pt is here for a PE. Will order labs. PFSH Surgical History No pertinent past surgical history Social History Housing: House Patient Tobacco Use Status: Never used Tobacco e-Cigarette/Vaping Use: Never Used Second Hand Smoke Exposure: No service: No Current occupational status: employed Current occupation: [employer] Current occupational exposures/hazards: No Cognitive needs: No Hearing needs: No Vision needs: Yes Questionnaire PHQ-9 Over the last 2 weeks, how often have you been bothered by any of the following problems? 26284 - PHQ-9 Billing: Patient declined-do not bill Source: Developed by Drs. Matt Nicholson, Britt Guillermo, Adis Alvarez and colleagues, with an educational sandy from [employer]. Thrive Questionnaire Date Thrive assessed: 06/14/24 I am a: Patient What is your living situation today?: I have a steady place to live Within the past 12 months, did the food you bought not last and you didn't have the money to get more?: Never true Within the past 12 months, did you worry whether your food would run out before you got money to buy more?: Never true Do you have trouble paying for medicines?: No Do you have trouble getting transportation to medical appointments?: No Do you have trouble paying your heating and electricity bill?: No Do you have trouble taking care of your child, family member or friend?: No Do you have trouble with day-to-day activities such as bathing, preparing meals, shopping, managing finances, etc.?: No Are you currently unemployed and looking for a job?: I choose not to answer this question Are you interested in more education?: No Please select the resources that you would like help with: None Currently or been in a relationship where the following occur: No concerns reported THRIVE Score: 0 DEAN-7 AMB Questionnaire DEAN-7 Date DEAN - 7 assessed: 05/05/24 Source: Developed by Drs. Matt Nicholson, Britt Guillermo, Adis Alvarez and colleagues, with an educational sandy from [employer]. Review of Systems Const Denies chills and Denies fever(s) Eyes Denies blurry vision ENT Denies vertigo, Denies dizziness and Denies sore throat Card Denies chest pain at rest, Denies chest pain with activity, Denies diaphoresis, Denies dyspnea and Denies dyspnea on exertion Resp Denies cough, Denies dyspnea, Denies dyspnea on exertion and Denies wheezing GI Denies abdominal pain, Denies melena, Denies hematochezia, Denies constipation, Denies diarrhea and Denies loose stools Denies hematuria Musc Denies numbness and Denies tingling Skin/Breast Denies lesions Neuro Denies vertigo, Denies dizziness, Denies numbness and Denies tingling Psych Denies anxiety, Denies depression, Denies homicidal ideation, Denies suicidal ideation and Denies other (substance abuse) Aller/Immun Denies wheezing Physical exam (Primary Care) Vital Signs: Last Vital Signs Pulse 81 06/14/24 07:41 BP 110/80 06/14/24 07:41 Pulse Ox 97 06/14/24 07:41 Oxygen Delivery Method Room Air 06/14/24 07:41 BMI result Body Mass Index 33.7 Tobacco/Smoking Status: Tobacco use Status Tobacco use date assessed 06/14/24 06/14/24 07:43 Patient Tobacco Use Status Never used Tobacco 06/14/24 07:39 e-Cigarette/Vaping Use Never Used 06/14/24 07:39 Thrive Assessment: Date of Thrive Assessment Date Thrive assessed 06/14/24 06/14/24 07:43 Currently or been in a relationship where the following occur: No concerns reported Const General: cooperative Nutritional Appearance: well nourished and obese Orientation/consciousness: patient oriented x3 HENMT Head: Yes normal to inspection, Yes normocephalic and Yes atraumatic Ears: TM's normal bilaterally Eyes General: appearance normal, both eyes and all related structures Alignment and Position: alignment normal and position normal Neck Neck: Yes normal visual inspection, Yes no lymphadenopathy and Yes supple Resp Effort & Inspection: normal respiratory effort Auscultation: clear to auscultation bilaterally Cardio Rate: regular rate Rhythm: regular rhythm Heart sounds: S1 normal heart sound present, S2 normal heart sound present and no murmurs GI Palpation (GI): Soft to palpation and nontender Auscultation: normal bowel sounds Male General Exam: Yes normal external exam Penis: normal penis Scrotum: scrotum normal, testes descended bilaterally and no inguinal hernias Testes: no testicular mass Skin Rashes: no rashes Neuro General: patient oriented x3, moves all extremities, no focal motor deficits and deep tendon reflexes 2+ bilaterally Romberg Test: Negative Psych Appearance: grossly normal Mental Status: mental status grossly normal Speech and movement: Normal speech and movement present Affect: normal affect Attitude: cooperative Thought process: Normal thought process present Thought content: Normal thought content present Insight: Good insight present (Psych) Judgement: Good judgement present (Psych) Coding Level of Care Code Est Pt Prev Care 40-64y(59209) Diagnoses Physical exam Z00.00 Assessment & Plan Assessment & Plan (1) Physical exam: Code(s): Z00.00 - Encounter for general adult medical examination without abnormal findings Category: Medical Plan: Labs ordered Plan The patient agreed to the use of a rn medical surgical for this encounter. Scribed for HARISH Dietrich by Katie Ann rn medical surgical, on 06/14/2024 at 07:45 EST. Orders: Orders Comprehensive [place]. Panel Fast Today Z00.00 - Encounter for general adult medical examination without abnormal findings TSH reflex Free T4 Today Z00.00 - Encounter for general adult medical examination without abnormal findings Lipid Panel Today Z00.00 - Encounter for general adult medical examination without abnormal findings Complete Blood Count Auto Diff Today Z00.00 - Encounter for general adult medical examination without abnormal findings UA CC w/rflx Micro + Cult Today Z00.00 - Encounter for general adult medical examination without abnormal findings
[2024-06-14 07:41] VITALS: BP 110/80; PULSE 81; O2SAT 97; BMI 33.7
== END 2024-06-14 08:20 | disposition home or self-care (01) ==
PROVIDERS: PCP Nurse Practitioner Family; Visit Provider Nurse Practitioner Family
DX: Z23 Encounter for immunization (principal); Z00.00 Encounter for general adult medical examination without abnormal findings

== ENCOUNTER → 2024-06-14 07:30 | Outpatient (BNVA) | payer OTHER, BC, SELFPAY | PROVIDERS: PCP Nurse Practitioner Family; Visit Provider Nurse Practitioner Family | DX: Z00.00 Encounter for general adult medical examination without abnormal findings (principal); Z23 Encounter for immunization | CPT/HCPCS: 90471; 90677 ==

== ENCOUNTER 2025-02-01 16:02 | Outpatient (AMB) | payer BC, SELFPAY ==
--- NOTE | 2025-02-01 16:06 | A.OFFPC_ITS ---
Vital Signs 02/01/25 16:07 Height 5 ft 9 in Weight 224 lb BMI 33.1 BP 112/80 Blood Pressure Location Lt brachial Position Sitting Pulse 90 Pulse Source Pulse Oximeter Pulse Oximetry (%) 97 Intake Visit Reasons: Follow up DM [place] Required: No Accompanied by: Self / Same As Patient Allergies morphine Allergy (Unknown, Verified 02/01/25 16:07) Skin flushing/hot/vomiting, vomiting Medication List - Last Reconciled 02/01/25 by CARRIE MoralesP-BC blood-glucose sensor (Dexcom G6 Sensor device) Use to monitor blood sugars throughout the day/night blood-glucose transmitter (Dexcom G6 Transmitter device) Use to monitor blood sugars throughout the day/night blood-glucose,jig builder helper,cont (Dexcom G6 [employer] Writer) Use to monitor blood sugars throughout the day/night clonidine HCl 0.1 mg PO DAILY FreeStyle Lancets (lancets) TID testing NS FreeStyle Lite Meter (blood-glucose meter) TID testing NS FreeStyle Lite Strips (blood sugar diagnostic) TID testing NS lisinopril 5 mg PO DAILY metformin 500 mg PO BID 90 days methylphenidate HCl 5 mg PO DAILY methylphenidate HCl 10 mg PO DAILY rosuvastatin 5 mg PO DAILY semaglutide 1 mg (0.75 mL) subcut QWEEK venlafaxine 37.5 mg PO DAILY 90 days Tobacco use date assessed: 02/01/25 Dental Screening Dental Screen Date: 02/01/25 Did you have a dental visit in the last 12 months?: Yes Did you have a dental problem in the last 6 months where you did not have access to dental care?: No Was dental information given to patient?: Patient has dentist HPI Follow up DM HPI Details Chief Complaint The patient presents for follow-up management of diabetes mellitus. History of Present Illness The patient is a 44-year-old male presenting with follow-up for diabetes management. His diabetes is currently managed with metformin, and his A1c level is 7.0, prompting an adjustment in his medication dosage. The plan includes increasing the morning dose of metformin to 1000 mg while maintaining the evening dose at 500 mg. He denies any symptoms such as nausea, vomiting, or neuropathy, and his feet show positive sensation with monofilament testing. His eye examination is current, and he understands the importance of regular lab work for ongoing monitoring. Social History Health Maintenance - Eye exam is up to date Review of Systems - Neurological: Denies nausea, vomiting, or neuropathy Physical Exam General: Cooperative, healthy appearing, comfortable, no acute distress and well developed, obese Orientation: Patient oriented x3 Limitations: No limitations Head: Normal to inspection Ears: Hearing grossly normal bilaterally Nose: Normal external nose present Face and sinus: Normal facial exam Eyes: Appearance normal, both eyes and all related structures Neck: Normal visual inspection and Yes full ROM Respiratory: Normal respiratory effort and able to speak in complete sentences. Clear to auscultation bilaterally Cardiovascular: Regular rate and rhythm. Normal S1 and S2 GI: Normal to inspection. Soft to palpation and nontender Skin: No rashes or lesions noted Neuro: Patient oriented x3 Extremities: Normal to inspection. Feet intact bilaterally with positive sensation using monofilament. Results - Labs: Hemoglobin A1c is 7.0 Plan The patient's diabetes management plan involves increasing the morning dose of metformin to 1000 mg while maintaining the evening dose at 500 mg. He should continue monitoring his blood glucose levels and complete lab work as discussed. A follow-up appointment is planned in four months to evaluate the effectiveness of the medication adjustment and overall diabetes management. Discussion Notes I discussed with the patient the current status of his diabetes management and the need to adjust his metformin dosage to better control his blood glucose levels. We reviewed the importance of regular lab work and scheduled a follow-up appointment in four months to reassess his condition. Patient Instructions - Increase morning dose of metformin to 1000 mg, keep evening dose at 500 mg - Monitor blood glucose levels regularly - Complete lab work as discussed - Follow up in four months [facility] Medical History Impingement of left shoulder ADHD Surgical History No pertinent past surgical history Social History Housing: House Patient Tobacco Use Status: Never used Tobacco e-Cigarette/Vaping Use: Never Used Second Hand Smoke Exposure: No service: No Current occupational status: employed Current occupation: [employer] Current occupational exposures/hazards: No Cognitive needs: No Hearing needs: No Vision needs: Yes Questionnaire Thrive Questionnaire Date Thrive assessed: 02/01/25 AUDIT C Alcohol Use Questionnaire (AUDIT-C) 1. How often do you have a drink containing alcohol?: 2-4 times a month 2. How many drinks containing alcohol do you have on a typical day when you are drinking?: 1 or 2 3. How often do you have six or more drinks on one occasion?: Never Total Score: 2 Score Reviewed/Action Taken: Yes DEAN-7 AMB Questionnaire DEAN-7 Date DEAN - 7 assessed: 05/05/24 Source: Developed by Drs. Matt Nicholson, Britt Guillermo, Adis Alvarez and colleagues, with an educational sandy from [employer]. Physical exam (Primary Care) Vital Signs: Last Vital Signs Pulse 90 02/01/25 16:07 BP 112/80 02/01/25 16:07 Pulse Ox 97 02/01/25 16:07 BMI result Body Mass Index 33.1 Tobacco/Smoking Status: Tobacco use Status Tobacco use date assessed 02/01/25 02/01/25 16:07 Patient Tobacco Use Status Never used Tobacco 02/01/25 16:07 e-Cigarette/Vaping Use Never Used 02/01/25 16:07 Thrive Assessment: Date of Thrive Assessment Date Thrive assessed 02/01/25 02/01/25 16:07 Results AMB Hemoglobin A1c AMB Hemoglobin A1c 7.0 % Last Edit by Scotty Hummel CMA on 02/01/25 16: 25 Results Reviewed Results Reviewed: Laboratory Last Values Hgb A1c (Clinic) 7.0 % (4.0-6.0) H 02/01/25 16:24 Coding Level of Care Code Est Pt Level 3 (72015) Diagnoses Diabetes E11.9 Assessment & Plan Assessment & Plan (1) Diabetes: Code(s): E11.9 - Type 2 diabetes mellitus without complications Category: Medical Plan . Orders: Orders Microalbumin, Random (w Creat) Today E11.9 - Type 2 diabetes mellitus without complications AMB Hemoglobin A1c Today Z13.9 - Encounter for screening, unspecified Medications: Changed From metformin 500 mg PO BID 180 tabs 1RF To metformin 2 tabs am and 1 tab pm 500 mg PO BID 270 tabs 0RF 90 days
[2025-02-01 16:07] VITALS: BP 112/80; PULSE 90; O2SAT 97; BMI 33.1
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
== END 2025-02-01 17:00 | disposition home or self-care (01) ==
LOC: HO.HMCC 16:02
PROVIDERS: PCP Nurse Practitioner Family; Visit Provider Nurse Practitioner Family
DX: Z13.9 Encounter for screening, unspecified (principal); E11.9 Type 2 diabetes mellitus without complications

== ENCOUNTER → 2025-02-01 16:02 | Outpatient (BNVA) | payer BC, SELFPAY | PROVIDERS: PCP Nurse Practitioner Family; Visit Provider Nurse Practitioner Family | DX: E11.9 Type 2 diabetes mellitus without complications (principal); Z79.84 Long term (current) use of oral hypoglycemic drugs | CPT/HCPCS: 83036 ==

== ENCOUNTER 2025-04-14 07:02 | Outpatient (AMB) | payer BC, SELFPAY ==
--- OUTSIDE RECORDS SUMMARY | 2020-03-19 10:40 | XMS_ITS | Encounter Summary ---
Author Organization [facility] Address [address] [facility] [address] [place] [phone] Phone Care Team Providers Care Vehicle Check In Clerk Name Role Phone Chad Sawyer MD Unavailable Unknown, Unknown Primary Care Provider Rylee roberto Encounter Details Date Type Department Care Team (Late st Contact Info) Description 03/19/2020 10:40 AM EDT Hospital Encounter [facility] [address] [place] [phone] Carlie Bernstein CNP [address] [place] [phone] [email or web address] Social History Tobacco Use Types Packs/Day [...] 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 POS [id number] Narrative 03/19/2020 10:56 AM EDT 3 views. [...] Nondisplaced distal fifth metatarsal shaft fracture. POS [id number] Carlie Bernstein [employer] LIBRARY DIRECTOR IMG XR LOWER EXTREMITY Maxine l Result documented in this encounter Visit Diagnoses Not on filedocumented in this encounter Additional Health Concerns Assessment Noted Time PHQ-2 Depression Total Score: 0 10/21/19 18 3:26 PM EDT documented as of this encounter Care Teams Vehicle Check In Clerk Relationship Specialty Start Date End Date Unknown, Unknown, PCP - General 03/19/20 05/14/22 Chad Sawyer MD [email or web address] Internal Medicine 10/21/17 documented as of this encounter Additional Source Comments The information contained in this document represents components of the legal health record. It is not the complete legal health record.[facility]
--- OUTSIDE RECORDS SUMMARY | 2025-04-14 07:06 | XMS_ITS | Clinical Summary ---
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 Active b complex vitamins tablet Acti ve zinc 50 mg Tab tablet Take 50 mg by mouth daily. Active cholecalciferol (VITAMIN D3) 5,000 unit tablet Take 5,000 Units by mouth daily. Active ascorbic acid, vitamin C, (VITAMIN C) 1000 MG tablet Take 1,000 mg by mouth 4 (four) times a day. 2 tablets in the morning, 2 tablets in the evening Active cyanocobalamin, vitamin B-12, 1000 MCG tablet Take 1,000 mcg by mouth daily. Active vitamin A 48223 UNIT capsule Take 25,000 Units by mouth daily. Active PEDIATRIC MULTIVITAMIN NO.76 (FLINTSTONES COMPLETE ORAL) Take 2 tablets by mouth daily. Active CALCIUM CITRATE/VITAMIN D3 (CITRACAL + D PETITES ORAL) Take 500 Units by mouth 2 (two) times a day. Active MAGNESIUM OXIDE/MAGNESIUM (MAGNESIUM, OXIDE/AA CHELATE, ORAL) Take 325 mg by mouth daily. Active lisinopril (PRINIVIL,ZESTRIL ) 5 MG tablet Take 5 mg by mouth daily. 2 Active sertraline (ZOLOFT) 100 MG tablet Take 100 mg by mouth daily. 2 Active aspirin 81 mg chewable tablet Take 81 mg by mouth daily. Active Active Problems Problem Noted Date Diagnosed Date History of Gisselle-en-Y gastric bypass 10/20/2017 Family history of early CAD 10/20/2017 Immunizations Immunization Administration Dates Next Due COVID-19 (Pre) Urban Remedy Vaccine, mRNA, PF COVID-19 (Pre) Pfizer Vaccine, mRNA, huong-sucrose, PF 05/23/2021,11/19/2020 Influenza Quadrivalent MDCK Preservative Free IM 06/08/2020 Influenza Quadrivalent Preservative Free IM 10/02 Influenza Quadrivalent w/ Preservative IM 2018 Influenza, Unspecified Formulation 04/16/2018 MMR 08/04/2016 Td (adult) 5 Lf Tetanus Toxoid, PF, Adsorbed 08/2016 Tdap 10/20/2017 Family History Medical History Relation Comments CABG Father Diabetes Father Smoker Epilepsy Father Heart attack Father Multiple Kidney failure Father Dx late 30s. Sta rting dialysis. Stroke Father Cognitive defici ts Heart disease Maternal Grandfather Diabetes Maternal Grandmother Heart disease Maternal Grandmother Stroke Maternal Grandmother Anxiety disorder Mother COPD Mother Smoker Coronary artery disease Mother Stents Heart attack Mother x 2 in her 50s Hypertension Mother Obesity Mother Other Paternal Grandfather of katie ck lung, miner pick Other Paternal Grandmother V fib Diabetes Sister 1 S/P Gisselle en Y Hypertension Sister 1 Obesity Sister 1 Diabetes Sister 2 Hypertension Sister 2 Obesity Sister 2 S/P Gisselle en Y Breast cancer Neg Hx Colon cancer Neg Hx Prostate cancer Neg Hx Relation Status Comments Father Alive Maternal Grandfather Maternal Grandmother Mother Alive Paternal Grandfather Paternal Grandmother (Age 92) Sister 1 Alive Sister 2 Alive Social History Tobacco Use Types Packs/Day Years [...] 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 on file Not on file Not on fi le Last Filed Vital Signs Vital Sign Reading Time Taken Comments Blood Pressure 142/89 05/15/2022 5:34 PM EDT Pulse 86 05/15/2022 5:34 PM EDT Temperature 36.6 C (97.9 F) 05/15/2022 5:34 PM EDT Respiratory Rate 20 05/15/2022 5:34 PM EDT Oxygen Saturation 96% 05/15/2022 5:34 PM EDT Inhaled Oxygen Concentration - - Weight 111.1 kg (245 lb) 05/15/2022 5:34 PM EDT Height 175.3 cm (5' 9 ) 05/15/2022 5:34 PM EDT Body Mass Index 36.18 05/15/2022 5:34 PM EDT Plan of Treatment Health Maintenance Due Date Last Done Comments HEPATITIS C SCREENING 02/08/2000 HIV ONE-TIME SCREENING (18-65 YEARS) 02/08/2000 HEPATITIS A VACCINES (1 of 2 - Risk 2-dose series) 2001 DEPRESSION SCREENING 10/20/2018 10/20/2017 CREATININE LEVEL 10/21/2018 10/21/2017 POTASSIUM LEVEL 10/21/2018 10/21/2017 SCREENING FOR DIABETES 10/21/2020 10/21/2017 LIPID PANEL 10/21/2022 10/21/2017 INFLUENZA VACCINE (#1) 2025 , 06/08/2020, 05/04/2019, Additional history exists COVID-19 VACCINE ( season) 2025 05/23/2021, 05/23/2021, 11/19/2020, Additional history exists Adult Td,Tdap Booster 10/21/2027 10/20/2017, 017 SMOKING STATUS SCREENING (Once After 26 Yrs) Completed 05/15/2022 HIB VACCINES Aged Out No longer eligi ble based on patient's age to complete this topic MENINGOCOCCAL VACCINES (ACWY) Aged Out No longer eligible based on patient's age to complete this topic MENINGOCOCCAL VACCINES (B) Aged Out N o longer eligible based on patient's age to complete this topic PNEUMOCOCCAL VACCINES (0-49 years) Aged Out No longer eligible based on patient's age to complete this topic Medical Devices Not on file Procedures Procedure Name Priority Date/Time Associated Diagnosis Comments LIPID PANEL Routine 10/21/2017 10:07 AM EDT Class 1 obesity due to excess calories without serious comorbidity with body mass index (BMI) of 32.0 to 32.9 in adult COMPREHENSIVE METABOLIC PANEL Routine 10/21/2017 10:07 AM EDT Class 1 obesity due to excess calories without serious comorbidity with body mass index (BMI) of 32.0 to 32.9 in adult Malaise and fatigue History of type 2 diabetes mellitus from Last 3 Months or Most Recently Relevant to Health Maintenance Results * (ABNORMAL) Comprehensive metabolic panel (10/21/2017 10:07 AM EDT) SODIUM 144 133 - 146 mmol/L [facility] POTASSIUM 4.2 3.3 - 5.1 mmol/L [facility] CHLORIDE 104 96 - 108 mmol/L [facility] CO2 30 21 - 35 mmol/L [facility] BUN 14 6 - 19 mg/dL [facility] CREATININE 0.70 0.5 - 1.5 mg/dL [facility] GLUCOSE 105(H) 70 - 99 mg/dL [facility] ALBUMIN 4.6 3.9 - 4.8 g/dL [facility] TOTAL PROTEIN 7.5 6.5 - 8.0 g/dL [facility] CALCIUM 9.9 8.4 - 10.3 mg/dL [facility] ALKALINE PHOSPHATASE 89 39 - 117 U/L [facility] TOTAL BILIRUBIN 0.6 0.0 - 1.2 mg/dL [facility] AST 30 0 - 37 U/L [facility] ALT 47(H) 0 - 40 U/L [facility] GLOBULIN 2.9 1 - 4.8 g/dL [facility] EGFR >120 >59 mL/min/1.7 3m2 [facility] Comment:If patient is black, multiply result by 1.159. The eGFR calculation has changed from the MDRD equation to the CKD-EPI equation as of October 07, 2017. ANION GAP 14 10 - 20 mmol/L [facility] Blood 10/21/2017 10:0 7 AM EDT 10/21/2017 10:10 AM EDT [facility] LAB BLOOD ORDERABLES Maxine l Result [address] [address] * (ABNORMAL) Lipid panel (10/21/2017 10:07 AM EDT) HDL 46 mg/dL [facility] Comment: Interpretation: Risk Level Males Decreased >45 mg/dL Average 40-45 mg/dL Increased <40 mg/dL CHOLESTEROL 129 0 - 240 mg/dL [facility] TRIGLYCERIDES 85 30 - 160 mg/dL [facility] LDL 66 50 - 129 mg/dL [facility] Comment: LDL levels in terms of risk for coronary heart disease: <100 mg/dL: Optimal 100-129 mg/dL: Near or above optimal 130-159 mg/dL: Borderline high 160-189 mg/dL: High >190 mg/dL: Very High CARDIAC RISK RATIO 2.8(L) 3.4 - 5.0 C [facility] Blood 10/21/2017 10:0 7 AM EDT 10/21/2017 10:10 AM EDT [facility] Maxine l Result Performing Organization Address City/[facility]/ZIP Co de Phone Number [address] [address] from Last 3 Months or Most Recently Relevant to Health Maintenance Insurance [facility] [place] [address] [address] [place] [address] [facility] [place] [facility] HMO [facility] D[facility] Care Teams 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 It is not the complete legal health record.[facility]
--- NOTE | 2025-04-14 07:30 | MHC.PC.OV ---
Intake Visit Reasons: FMLA Allergies morphine Allergy (Unknown, Verified 04/14/25 07:30) Skin flushing/hot/vomiting, vomiting Medication List - Last Reconciled 04/14/25 by HARISH Morales blood-glucose sensor (Dexcom G6 Sensor device) Use to monitor blood sugars throughout the day/night blood-glucose transmitter (Dexcom G6 Transmitter device) Use to monitor blood sugars throughout the day/night blood-glucose,circuit breaker mechanic,cont (Dexcom G6 Safety Security Officer) Use to monitor blood sugars throughout the day/night clonidine HCl 0.1 mg PO DAILY duloxetine 60 mg PO DAILY FreeStyle Lancets (lancets) TID testing NS FreeStyle Lite Meter (blood-glucose meter) TID testing NS FreeStyle Lite Strips (blood sugar diagnostic) TID testing NS lisinopril 5 mg PO DAILY metformin 500 mg PO BID 90 days methylphenidate HCl 5 mg PO DAILY methylphenidate HCl 10 mg PO DAILY rosuvastatin 5 mg PO DAILY semaglutide 1 mg (0.75 mL) subcut QWEEK Tobacco use date assessed: 02/01/25 Dental Screening Dental Screen Date: 02/01/25 HPI FMLA HPI Details History of Present Illness The patient is a 45-year-old male presenting with panic disorder and anxiety disorder. He recently sought crisis intervention due to ongoing panic attacks and anxiety, and has since been under the care of a psychiatrist and a therapist, whom he sees weekly. The patient was previously on Effexor, which has been discontinued, and he is now prescribed Cymbalta. He reports feeling calmer and is able to hold his thoughts better than before. The patient is currently on leave from work since March 28, 2025, due to burnout from working over 60 hours a week, affecting his mental, physical, psychological health. He agrees with the decision to take time off to recuperate, as he was experiencing physical, mental, and psychological exhaustion. He denies any suicidal or homicidal ideations and is receiving appropriate treatment. Review of Systems - Psychiatric: Reports panic attacks and anxiety. Denies suicidal or homicidal ideations. Plan 1. Panic Disorder The patient is currently under the care of a psychiatrist and a therapist, with weekly sessions to manage his panic disorder. He has been switched from Effexor to Cymbalta, which appears to be effective as he reports feeling calmer and more focused. Follow-up with his psychiatrist is scheduled for May 04, and he is advised to remain off work until July 04 to allow for recovery. 2. Anxiety Disorder The patient is receiving ongoing therapy and medication management for his anxiety disorder. He is advised to continue his current treatment regimen and follow up with his psychiatrist as planned. 3. Burnout Syndrome The patient is advised to remain on leave from work until July 04 to recover from burnout syndrome. Long-term disability forms have been completed to support his leave from work. Discussion Notes I discussed with the patient the importance of continuing his current treatment plan, including medication and therapy, to manage his panic and anxiety disorders. We agreed on the necessity of taking time off work to recover from burnout, and I completed the necessary disability forms to support this decision. The patient is scheduled for a follow-up with his psychiatrist on May 04, and I will see him again in June to reassess his condition. Patient Instructions - Continue taking Cymbalta as prescribed. - Attend weekly therapy sessions. - Follow up with your psychiatrist on May 04. - Remain off work until July 04 to allow for recovery. [facility] Medical History Impingement of left shoulder ADHD Surgical History No pertinent past surgical history Social History Housing: House Patient Tobacco Use Status: Never used Tobacco e-Cigarette/Vaping Use: Never Used Second Hand Smoke Exposure: No service: No Current occupational status: employed Current occupation: [employer] Current occupational exposures/hazards: No Cognitive needs: No Hearing needs: No Vision needs: Yes Questionnaire Thrive Questionnaire Date Thrive assessed: 05/05/24 I am a: Patient What is your living situation today?: I have a steady place to live Within the past 12 months, did the food you bought not last and you didn't have the money to get more?: Never true Within the past 12 months, did you worry whether your food would run out before you got money to buy more?: Never true Do you have trouble paying for medicines?: No Do you have trouble getting transportation to medical appointments?: No Do you have trouble paying your heating and electricity bill?: No Do you have trouble taking care of your child, family member or friend?: No Do you have trouble with day-to-day activities such as bathing, preparing meals, shopping, managing finances, etc.?: No Are you currently unemployed and looking for a job?: I choose not to answer this question Are you interested in more education?: No Please select the resources that you would like help with: None Currently or been in a relationship where the following occur: No concerns reported THRIVE Score: 0 DEAN-7 AMB Questionnaire DEAN-7 Date DEAN - 7 assessed: 05/05/24 Source: Developed by Drs. Matt Nicholson, Britt Guillermo, Adis Alvarez and colleagues, with an educational sandy from [employer]. Physical exam (Primary Care) Tobacco/Smoking Status: Tobacco use Status Tobacco use date assessed 02/01/25 02/01/25 16:07 Patient Tobacco Use Status Never used Tobacco 02/01/25 16:07 e-Cigarette/Vaping Use Never Used 02/01/25 16:07 Thrive Assessment: Date of Thrive Assessment Date Thrive assessed 05/05/24 04/14/25 07:03 Currently or been in a relationship where the following occur: No concerns reported Telehealth Telehealth Telehealth Platform: [facility] Location of provider rendering services: practice address Location of patient: address on file Patient Identification confirmed using: Name, : Yes Telehealth method: video Patient verbally consented to treatment: Yes Patient verbally consented to billing insurance company: Yes Patient informed of any privacy concerns related to visit: Yes Minutes spent on Phone/Video with Pt.: 22 Coding Level of Care Code Tele Est Pt Level 4 (73679) Diagnoses Anxiety and depression F41.9; F32.9 Assessment & Plan Assessment & Plan (1) Anxiety and depression: Code(s): F41.9 - Anxiety disorder, unspecified; F32.9 - Major depressive disorder, single episode, unspecified Category: Medical Plan .
== END 2025-04-14 16:48 | disposition home or self-care (01) ==
LOC: HO.HMCC 07:03
PROVIDERS: PCP Nurse Practitioner Family; Visit Provider Nurse Practitioner Family
DX: F41.9 Anxiety disorder, unspecified (principal); F32.9 Major depressive disorder, single episode, unspecified

== ENCOUNTER 2025-06-20 10:06 | Outpatient (REF) | payer BC, SELFPAY ==
--- OUTSIDE RECORDS SUMMARY | 2020-03-19 09:40 | XMS_ITS | Encounter Summary ---
Author Organization [facility] Address [address] [facility] [address] [place] [phone] Phone Care Team Providers Care Chief Meter Reader Name Role Phone Chad Sawyer MD Unavailable Unknown, Unknown Primary Care Provider Rylee roberto Encounter Details Date Type Department Care Team (Late st Contact Info) Description 03/19/2020 10:40 AM EDT Hospital Encounter [facility] [address] [place] [address] Carlie Bernstein CNP [address] [place] [phone] [email or web address] Social History Tobacco Use Types Packs/Day Years [...] 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 POS [id number] Narrative 03/19/2020 10:56 AM EDT 3 views. [...] Nondisplaced distal fifth metatarsal shaft fracture. POS [id number] Carlie Bernstein STEEL LAYER IMG XR LOWER EXTREMITY Maxine l Result documented in this encounter Visit Diagnoses Not on filedocumented in this encounter Additional Health Concerns Assessment Noted Time PHQ-2 Depression Total Score: 0 10/21/19 18 3:26 PM EDT documented as of this encounter Care Teams Chief Meter Reader Relationship Specialty Start Date End Date Unknown, Unknown, PCP - General 03/19/20 05/14/22 Chad Sawyer MD [email or web address] Internal Medicine 10/21/17 documented as of this encounter Additional Source Comments The information contained in this document represents components of the legal health record. It is not the complete legal health record.[facility]
[2025-06-20 13:06] LABS: MANUAL DIFF FLAG NO
[2025-06-20 13:18] LABS: Appearance Urine Clear; Glucose Urine UA Negative (Negative); PH 6.5 (5.0-9.0); Specific Gravity - Urine 1.020 (1.005-1.025); UMIC TRIGGER UACC YES
[2025-06-20 13:35] LABS: Hematocrit 45.6 % (42.0-52.0); Hemoglobin 15.1 g/dl (14.0-18.0); Imm Gran Abs Auto 0.02 X10*3/uL (0.00-0.03); Imm Gran Pct Auto 0.4 % (0.0-0.4); Lymphocytes Absolute Auto 1.7 X10*3/uL (1.2-4.9); Mean Corpuscular HGB Conc 33.1 g/dl (31.0-36.0); Mean Corpuscular Hemoglobin 28.2 pg (27.0-33.0); Mean Corpuscular Volume 85.1 fL (80.0-98.0); NRBC Abs Auto 0.000 X10*3/uL (0.0-0.012); NRBC Pct Auto 0.0 /100WBC (0.0-0.2); Platelet Count 191 X10*3/uL (160-400); Red Blood Count 5.36 X10*6/uL (4.60-5.80); White Blood Count 5.6 X10*3/uL (4.8-10.8)
[2025-06-20 13:43] LABS: Microalbum/Creatinine Ratio Ur 3.8 ug/mg cr (<30)
[2025-06-20 13:59] LABS: Alanine Aminotransferase 69 U/L (0-40); Albumin Level 4.5 g/dL (3.5-5.0); Alkaline Phosphatase 62 U/L (39-117); Anion Gap 11 (12-20); Aspartate Amino Transferase 47 U/L (5-37); Blood Urea Nitrogen 13 mg/dL (9-16); Calcium 9.4 mg/dL (8.4-10.2); Carbon Dioxide 26 mmol/L (22-29); Chloride 104 mmol/L (96-108); Cholesterol 105 mg/dL (<200); Estimated Glomerular Filt Rate > 60; HDL Cholesterol 38 mg/dL (>40); Potassium 4.4 mmol/L (3.3-5.1); Sodium 137 mmol/L (135-145); Total Protein 6.8 g/dL (6.5-8.0); Triglycerides 116 mg/dL (<150)
--- OUTSIDE RECORDS SUMMARY | 2025-06-20 21:02 | XMS_ITS | Data Portability ---
Author Organization [facility], [facility] Address [address] [place] [address] Care Team Providers Care Snubber Name Role Phone MATTIE MULLEN Primary Care Provider [phone] Assessment Encounter Date Assessment Date Assessment LastModified [...] functional movements such as reaching and self-care. [email or web address] Not available 12/01/2024 18:46:52 12/13/2024 12/13/2024 Assessment: [...] stretching at end ranges of shoulder ROM. [email or web address] Not available 12/15/2024 08:03:08 12/15/2024 12/15/2024 Assessment:Moder [...] stretching at end ranges of shoulder ROM. Not available 12/15/2024 18:59:06 12/29/2024 12/29/2024 Assessment:Good toleration to increased resistance for prone exercises. introduced to lat pull downs. Pt able to complete with no adverse effects. Reviewed and updated HEP. Plan: DC to HEP [email or web address] Not available 12/29/2024 18:50:16 Plan of Treatment [...] Recorded Time Pain of left shoulder joint [id number] 9109 Active 2023 ESTER JORDAN [facility] 4 14:14:48 Impingement syndrome of left shoulder region 0012278606967 04 Active 2024 Chad schroeder PA-C [address], [place], [address], [facility] 5 09:41:41 Problem Notes None recorded. Procedures Surgical History Date Name Laterality Status Provider Name and Address Organization Details Recorded Time 5 65983: Therapeutic Activities (1:1) completed Jennifer Gallo, ACCOUNT MANAGEMENT ASSISTANT [address] [facility], [place], [address], [facility] 12/29/2024 17:59:05 5 88341 Therapeutic Exercise (1:1) completed Jennifer Gallo, ACCOUNT MANAGEMENT ASSISTANT [address], [place], [address], [facility] 12/29/2024 17:59:05 5 66417: Therapeutic Activities (1:1) completed Jennifer Gallo, ACCOUNT MANAGEMENT ASSISTANT [address], [place], [address], [facility] 12/15/2024 18:09:20 5 96779 Therapeutic Exercise (1:1) completed Jennifer Gallo, ACCOUNT MANAGEMENT ASSISTANT [address], [place], [address], [facility] 12/15/2024 18:09:20 5 99748: Therapeutic Activities (1:1) completed Kanwal Andre, PT [address], [place], [address], [facility] 12/13/2024 08:04:47 5 25130 Therapeutic Exercise (1:1) completed Kanwal Andre, PT [address], [place], [address], [facility] 12/13/2024 08:04:47 5 19646: Therapeutic Activities (1:1) completed Jennifer Gallo, ACCOUNT MANAGEMENT ASSISTANT [address], [place], [address], [facility] 12/01/2024 17:56:23 5 19020 Therapeutic Exercise (1:1) completed Jennifer Gallo, ACCOUNT MANAGEMENT ASSISTANT [address], [place], [address], [facility] 12/01/2024 17:56:27 5 Sports Shoulder completed Chad Millan PA-C [address], [place], [address], [facility] 12/01/2024 09:41:36 5 93108: Therapeutic Activities (1:1) completed Jennifer Gallo, ACCOUNT MANAGEMENT ASSISTANT [address], [place], [address], [facility] 11/29/2024 15:51:04 5 27152 Therapeutic Exercise (1:1) completed Jennifer Gallo, ACCOUNT MANAGEMENT ASSISTANT [address], [place], [address], [facility] 11/29/2024 15:51:04 5 88284: Therapeutic Activities (1:1) completed Rodriguez Sabino, ACCOUNT MANAGEMENT ASSISTANT [address], [place], [address], [facility] 11/24/2024 17:59:24 5 77201 Therapeutic Exercise (1:1) completed Jennifer Pulliamraf, ACCOUNT MANAGEMENT ASSISTANT [address], [place], [address], [facility] 11/24/2024 17:59:24 5 95288: Therapeutic Activities (1:1) completed Jennifer Gallo, ACCOUNT MANAGEMENT ASSISTANT [address], [place], [address], [facility] 11/22/2024 18:04:18 5 30824 Therapeutic Exercise (1:1) completed Jennifer Gallo, ACCOUNT MANAGEMENT ASSISTANT [address], [place], [address], [facility] 11/22/2024 18:04:18 5 28105: Therapeutic Activities (1:1) completed Jennifer Gallo, ACCOUNT MANAGEMENT ASSISTANT [address], [place], [address], [facility] 11/17/2024 17:27:16 5 09983 Therapeutic Exercise (1:1) completed Jennifer Gallo, ACCOUNT MANAGEMENT ASSISTANT [address], [place], [address], [facility] 11/17/2024 17:27:16 5 42821: Therapeutic Activities (1:1) completed Kanwal Andre, PT [address], [place], [address], [facility] 11/16/2024 23:39:07 5 26306 Therapeutic Exercise (1:1) completed Kanwal Andre, PT [address], [place], [address], [facility] 11/16/2024 23:39:13 5 23778: Therapeutic Activities (1:1) completed Rodriguez Sabino, ACCOUNT MANAGEMENT ASSISTANT [address], [place], [address], [facility] 11/10/2024 18:02:01 5 60220 Therapeutic Exercise (1:1) completed Rodriguez Sabino, ACCOUNT MANAGEMENT ASSISTANT [address], [place], [address], [facility] 11/10/2024 18:02:01 5 12514: Hot or Cold Pack completed Rodriguez Sabino, ACCOUNT MANAGEMENT ASSISTANT [address], [place], [address], [facility] 11/10/2024 18:02:01 5 50251: Therapeutic Activities (1:1) completed Rodriguez Sabino, ACCOUNT MANAGEMENT ASSISTANT [address], [place], [address], [facility] 11/03/2024 18:00:09 5 07506 Therapeutic Exercise (1:1) completed Rodriguez Sabino, ACCOUNT MANAGEMENT ASSISTANT [address], [place], [address], [facility] 11/03/2024 18:00:09 5 15699: Hot or Cold Pack completed Rodriguez Sabino, ACCOUNT MANAGEMENT ASSISTANT [address], [place], [address], [facility] 11/03/2024 18:44:59 5 54575: Therapeutic Activities (1:1) completed Kanwal Andre, PT [address], [place], [address], [facility] 11/01/2024 15:17:00 5 18074 Therapeutic Exercise (1:1) completed Kanwal Andre, PT [address], [place], [address], [facility] 11/01/2024 15:17:00 5 38269: Hot or Cold Pack completed Kanwal Andre, PT [address], [place], [address], [facility] 11/01/2024 15:17:00 5 98270: Therapeutic Activities (1:1) completed Rodriguez Sabino, ACCOUNT MANAGEMENT ASSISTANT [address], [place], [address], [facility] 10/27/2024 18:28:38 5 61882 Therapeutic Exercise (1:1) completed Rodriguez Sabino, ACCOUNT MANAGEMENT ASSISTANT [address], [place], [address], [facility] 10/27/2024 18:28:30 5 23314: Hot or Cold Pack completed Rodriguez Sabino, ACCOUNT MANAGEMENT ASSISTANT [address], [place], [address], [facility] 10/27/2024 17:59:15 5 98061 Therapeutic Exercise (1:1) completed Kanwal Andre, PT [address], [place], [address], [facility] 10/25/2024 08:08:38 5 74527: Hot or Cold Pack completed Kanwal Andre, PT [address], [place], [address], [facility] 10/26/2024 23:16:14 5 43183 Therapeutic Exercise (1:1) completed Rodriguez Sabino, ACCOUNT MANAGEMENT ASSISTANT [address], [place], [address], [facility] 10/20/2024 18:50:00 5 92187: Hot or Cold Pack completed Rodriguez Sabino, ACCOUNT MANAGEMENT ASSISTANT [address], [place], [address], [facility] 10/20/2024 18:50:09 5 91504 Therapeutic Exercise (1:1) completed Kanwal Andre, PT [address], [place], [address], [facility] 10/20/2024 08:29:50 5 25411: Low complexity PT Eval completed Kanwal Andre, PT [address], [place], [address], [facility] 10/20/2024 08:30:01 5 PM Shoulder Kenalog 2cc Injection Unilateral completed Kody Walton MD [address], [place], [address], [facility] 09/13/2024 14:00:22 4 PM Shoulder Kenalog 2cc Injection Unilateral completed Kody Walton MD [address], [place], [address], [facility] 06/01/2024 14:59:48 Imaging Results None recorded. Procedure Notes None recorded. Medical Equipment None Reported. Allergies Allergen ID Allergen Name Allergen Category Reaction Reaction Severity Criticality Documentation Date Start Date Code Code System Note Provider Name and Address Organization Details Recorded Time 338718 morphine medicatio n Not available Not available Not available 06/01/2024 7052 [facility] 4 14:14:28 Medications Name Sig Start Date Stop [...] Updated DateTime 12/01/2024 175.26 cm 34.4 kg/m2 167991.02 g SARAH HARLEY [facility] 12/01/2024 09:04:03 Social History Question Answer Notes LastModified by Organizat ion Details LastModified Time Tobacco Smoking Status Never Smoker SARAH cheng [facility] 12/01/2024 09:04:41 Have You Ever Been Counseled For Unhealthy Alcohol Use? No Information not available 12/01/2024 What Is Your Relationship Status? Information not available 12/01/2024 Sex: Unknown Functional Status Question Answer Note LastModified by Organizat ion Details LastModified Time How many times per [...] History Nothing Reported. Medical History Condition Response Allergies/Hayfever N Coronary Artery Disease N Breathing or lung disorders N Anxiety/Depression Y Emphysema N Nerve Disorders N Thyroid Problems N COPD N Pacemaker N Kidney/Bladder Problems N Anemia N Vascular Disease N Heart Trouble N Heart Attack (VA) N Gastrointestinal Disease N Cholesterol Y Diabetes Y Autoimmune disease N Inflammatory Joint disease N Bleeding Disorder N Orthotics N Seizures/Epilepsy N Arthritis N Blood Clot N AIDS/HIV N Congestive Heart Failure (CHF) N Acid Reflux (GERD) N Cancer N Stroke N Asthma N Circulation Problems N Peripheral Vascular Disease N Sleep Apnea N Hepatitis N Heart Disease N Rheumatoid Arthritis N Pulmonary Embolism N Arrhythmia N Headaches N Fibromyalgia N Hypertension Y Osteoporosis N Past Encounters Encounter ID Performer Location Encounter Start Date Encounter Closed Date Diagnosis/Indication Diagnosis SNOMED-CT Code Diagnosis ICD10 Code Diagnosis IMO Codes Diagnosis Note [id number] MD Srinivasa Shafer [address] [place] [address] 06/01/2024 13:50:40 06/23/2024 09:08:39 Pain of left shoulder joint [id number] 4300602 M25.512 [id number] MD ANT Shafer [address] [place] [address] 09/13/2024 13:32:00 09/29/2024 07:17:17 Pain of left shoulder joint 8882816383 9894033 M25.512 [id number] Kanwal Andre, PT [facility] on [address] [facility] [place] [address] 10/18/2024 17:45:18 10/20/2024 15:03:24 Impingement syndrome of left shoulder region 0187150518 06095 M75.42 [id number] LALO Brunoe [address] [place] [address] 10/19/2024 14:34:48 11/08/2024 09:03:14 Impingement syndrome of left shoulder region 4275062570 65841 M75.42 [id number] Jennifer Gallo, ACCOUNT MANAGEMENT ASSISTANT [facility] [address] [place] [address] 10/20/2024 18:00:18 10/21/2024 06:31:53 Impingement syndrome of left shoulder region 4341740501 82429 M75.42 [id number] Kanwal Andre, PT [facility] [address] [place] [address] 10/25/2024 17:56:26 10/27/2024 06:27:51 Impingement syndrome of left shoulder region 3640784810 77763 M75.42 [id number] Jennifer Gallo, ACCOUNT MANAGEMENT ASSISTANT [facility] [address] [place] [address] 10/27/2024 17:56:55 10/28/2024 07:06:18 Impingement syndrome of left shoulder region 4149420288 70412 M75.42 [id number] Kanwal Andre, PT [facility] [address] [place] [address] 11/01/2024 17:58:29 11/02/2024 07:21:18 Impingement syndrome of left shoulder region 9429989755 62974 M75.42 [id number] Jennifer Gallo, ACCOUNT MANAGEMENT ASSISTANT [facility] [address] [place] [address] 11/03/2024 17:51:54 11/04/2024 07:06:17 Impingement syndrome of left shoulder region 0035109188 08793 M75.42 [id number] Jennifer Rossf, ACCOUNT MANAGEMENT ASSISTANT [facility] [address] [place] [address] 11/10/2024 17:59:35 11/11/2024 06:51:53 Impingement syndrome of left shoulder region 6031649442 18576 M75.42 [id number] Kanwal Andre, PT [facility] [address] [place] [address] 11/15/2024 18:00:19 11/17/2024 07:11:07 Impingement syndrome of left shoulder region 0631162725 70099 M75.42 [id number] Rodriguez Sabino, ACCOUNT MANAGEMENT ASSISTANT [facility] [address] [place] [address] 11/17/2024 18:01:58 11/18/2024 13:01:19 Impingement syndrome of left shoulder region 5905783251 12231 M75.42 [id number] Rodriguez Sabino, ACCOUNT MANAGEMENT ASSISTANT [facility] [address] [place] [address] 11/22/2024 17:58:11 11/23/2024 06:57:33 Impingement syndrome of left shoulder region 4957825797 03952 M75.42 [id number] Rodriguez Sabino, ACCOUNT MANAGEMENT ASSISTANT [facility] [address] [place] [address] 11/24/2024 17:56:15 11/25/2024 15:28:54 Impingement syndrome of left shoulder region 7779890826 99267 M75.42 [id number] Rodriguez Sabino, ACCOUNT MANAGEMENT ASSISTANT [facility] [address] [place] [address] 11/29/2024 17:49:45 11/30/2024 06:52:16 Impingement syndrome of left shoulder region 6238756594 86187 M75.42 [id number] LALO Bruno [address] [place] [address] 12/01/2024 08:56:04 12/14/2024 14:34:57 Impingement syndrome of left shoulder region 0102387751 46673 M75.42 [id number] Rodriguez Sabino, ACCOUNT MANAGEMENT ASSISTANT [facility] [address] [facility] [place] [address] 12/01/2024 18:02:25 12/02/2024 06:59:01 Impingement syndrome of left shoulder region 5390428694 06808 M75.42 [id number] [facility] [address] [facility] [place] [address] 12/13/2024 17:54:23 12/15/2024 08:11:07 Impingement syndrome of left shoulder region 1149332863 25614 M75.42 [id number] Rodriguez Sabino, ACCOUNT MANAGEMENT ASSISTANT [facility] [address] [place] [address] 12/15/2024 18:07:45 01/11/2025 15:50:21 Impingement syndrome of left shoulder region [id number] 07008 M75.42 [id number] Jennifer Pulliamraf, ACCOUNT MANAGEMENT ASSISTANT [facility] [address] [facility] [place] [address] 12/29/2024 17:58:40 12/30/2024 07:00:45 Impingement syndrome of left shoulder region 9856830747 91875 M75.42 Health Concerns Section Related Observation LastModified by Organization Detai ls LastModified Time None Recorded Concern Status LastModified by Organization Details LastModified Time None Recorded Advance Directives Directive None Recorded Payers Insurance Date Sequence Insurance Name Policy Number Policy Moore Covered Member ID Moore Member ID Guarantor Name 01/28/2025 1 [facility] [id number] Reynaldo Fam [id number] Reynaldo Fam 01/28/2025 [employer] INSURANCE Reynaldo Fam 05/31/2024 1 [facility] Mark De La Cruz [id number] Reynaldo Fam Notes Date Note Type Note Provider Name and Address Organization Details Recorded Time 12/01/2024 text/html Pt reports his follow up went well. He has gotten a cortizone injection and it has been feeling fine. He would like to discuss maybe switching to once per week.. Jennifer Gallo, ACCOUNT MANAGEMENT ASSISTANT [address], [place], [address], [facility] 12/01/2024 18:47:16 12/01/2024 text/html [...] and is located in the patient s chart.Examination : Full range of motion today with still [...] Millan PA-C [address], [place], [address], [facility] 12/01/2024 09:41:53 12/13/2024 text/html Pt reports his shoulder has been feeling really good recently, no marked pain, especially since having cortisone injection. Kanwal Andre, PT [address], [place], [address], [facility] 12/15/2024 08:03:23 12/15/2024 text/html Pt reports he is feeling pretty good today. Last session went well he felt fine after. Jennifer Gallo, ACCOUNT MANAGEMENT ASSISTANT [address], [place], [address], [facility] 01/11/2025 12:48:39 12/29/2024 text/html Pt report's he is doing really good today. He felt fine after last session and is wondering if he can DC today. Jennifer Gallo, ACCOUNT MANAGEMENT ASSISTANT [address], [place], [address], [facility] 12/29/2024 18:52:10
--- OUTSIDE RECORDS SUMMARY | 2025-06-20 21:03 | XMS_ITS | Clinical Summary ---
Author Organization [facility] Address [address] [facility] [address] [place] [address] Phone Care Team Providers Care Switch Adjuster Name Role Phone Chad Sawyer MD Unavailable [...] mcg by mouth daily. 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 Not on file Not [...] LEVEL 10/21/2018 10/21/2017 POTASSIUM LEVEL 10/21/2018 10/21/2017 LIPID PANEL 10/21/2022 10/21/2017 INFLUENZA VACCINE (#1) 2025 , 06/08/2020, 05/04/2019, Additional history exists COVID-19 VACCINE ( season) 2025 05/23/2021, 05/23/2021, 11/19/2020, Additional history exists Adult Td,Tdap Booster 10/21/2027 10/20/2017, 017 SMOKING STATUS SCREENING (Once After 26 Yrs) Completed 05/15/2022 HIB VACCINES Aged Out No longer eligi ble based on patient's age to complete this topic IPV VACCINES Aged Out No longer eligi ble [...] to 32.9 in adult COMPREHENSIVE METABOLIC PANEL (CMP) Routine 10/21/2017 10:07 AM EDT Class 1 obesity due to excess calories without serious comorbidity with body mass index (BMI) of 32.0 to 32.9 in adult Malaise and fatigue History of type 2 diabetes mellitus from Last 3 Months or Most Recently Relevant to Health Maintenance Results * (ABNORMAL) Comprehensive metabolic panel (10/21/2017 10:07 AM EDT) SODIUM 144 133 - 146 mmol/L [facility] POTASSIUM 4.2 3.3 - 5.1 mmol/L [facility] CHLORIDE 104 96 - 108 mmol/L [facility] CO2 30 21 - 35 mmol/L [facility] BUN 14 6 - 19 mg/dL [facility] CREATININE 0.70 0.5 - 1.5 mg/dL [facility] GLUCOSE 105(H) 70 - 99 mg/dL [facility] ALBUMIN 4.6 3.9 - 4.8 g/dL [facility] TOTAL PROTEIN 7.5 6.5 - 8.0 g/dL [facility] CALCIUM 9.9 8.4 - 10.3 mg/dL [facility] ALKALINE PHOSPHATASE 89 39 - 117 U/L [facility] TOTAL BILIRUBIN 0.6 0.0 - 1.2 mg/dL [facility] AST 30 0 - 37 U/L [facility] ALT 47(H) 0 - 40 U/L [facility] GLOBULIN 2.9 1 - 4.8 g/dL [facility] EGFR >120 >59 mL/min/1.7 3m2 [facility] Comment:If patient is black, multiply result by 1.159. The eGFR calculation has changed from the MDRD equation to the CKD-EPI equation as of October 07, 2017. ANION GAP 14 10 - 20 mmol/L [facility] Blood 10/21/2017 10:0 7 AM EDT 10/21/2017 10:10 AM EDT [facility] LAB BLOOD BKR ORDERABLES Final Result [address] [address] * (ABNORMAL) Lipid panel (10/21/2017 10:07 AM EDT) HDL 46 mg/dL [facility] Comment: Interpretation: Risk Level Males Decreased >45 mg/dL Average 40-45 mg/dL Increased <40 mg/dL CHOLESTEROL 129 0 - 240 mg/dL [facility] TRIGLYCERIDES 85 30 - 160 mg/dL [facility] LDL 66 50 - 129 mg/dL [facility] Comment: LDL levels in terms of risk for coronary heart disease: <100 mg/dL: Optimal 100-129 mg/dL: Near or above optimal 130-159 mg/dL: Borderline high 160-189 mg/dL: High >190 mg/dL: Very High CARDIAC RISK RATIO 2.8(L) 3.4 - 5.0 C [facility] Blood 10/21/2017 10:0 7 AM EDT 10/21/2017 10:10 AM EDT [employer] [facility] BKR ORDERABLES Final Result Performing Organization Address City/[facility]/ZIP Co de Phone Number [address] [address] from Last 3 Months or Most Recently Relevant to Health Maintenance Insurance [employer] [place] [address] [place] [address] [facility]LY [facility] Care Teams Switch Adjuster Relationship Specialty Start Date End Date Jeramie Awad NP 1959 [facility] [place] [address] PCP - General Family Medicine 05/15/22 Chad Sawyer MD [email or web address] Medicine 10/21/17 Additional Source Comments The information contained in this document represents components of the legal health record. It is not the complete legal health record.[facility]
== END 2025-06-20 10:07 | disposition home or self-care (01) ==
LOC: HO.HMGCLDS 10:06
PROVIDERS: PCP Nurse Practitioner Family; Visit Provider Nurse Practitioner Family
DX: E11.9 Type 2 diabetes mellitus without complications (principal)
CPT/HCPCS: 36415; 80053; 80061; 81001; 81003; 82043; 82570; 83036; 84443; 85025

== ENCOUNTER 2025-06-22 06:44 | Outpatient (AMB) | payer BC, SELFPAY ==
--- OUTSIDE RECORDS SUMMARY | 2020-03-19 09:40 | XMS_ITS | Encounter Summary ---
Author Organization [facility] Address [address] [facility] [address] [place] [phone] Phone Care Team Providers Care Handkerchief Folder Name Role Phone Chad Sawyer MD Unavailable Unknown, Unknown Primary Care Provider Rylee roberto Encounter Details Date Type Department Care Team (Late st Contact Info) Description 03/19/2020 10:40 AM EDT Hospital Encounter [facility] [address] [place] [phone] Carlie Bernstein CNP [address] [place] [phone] [email or web address] Social History Tobacco Use Types Packs/Day Years [...] 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 POS [id number] Narrative 03/19/2020 10:56 AM EDT 3 views. [...] Nondisplaced distal fifth metatarsal shaft fracture. POS [id number] Carlie Bernstein STEEPLECHASE JOCKEY IMG XR LOWER EXTREMITY Maxine l Result documented in this encounter Visit Diagnoses Not on filedocumented in this encounter Additional Health Concerns Assessment Noted Time PHQ-2 Depression Total Score: 0 10/21/19 18 3:26 PM EDT documented as of this encounter Care Teams Handkerchief Folder Relationship Specialty Start Date End Date Unknown, Unknown, PCP - General 03/19/20 05/14/22 Chad Sawyer MD [email or web address] Internal Medicine 10/21/17 documented as of this encounter Additional Source Comments The information contained in this document represents components of the legal health record. It is not the complete legal health record.[facility]
--- NOTE | 2025-06-22 07:20 | MHC.PC.OV ---
Intake Visit Reasons: 2 months f/up-telehealth Allergies morphine Allergy (Unknown, Verified 06/22/25 07:25) Skin flushing/hot/vomiting, vomiting Medication List - Last Reconciled 06/22/25 by MAILE Morales- blood-glucose sensor (Dexcom G6 Sensor device) Use to monitor blood sugars throughout the day/night blood-glucose transmitter (Dexcom G6 Transmitter device) Use to monitor blood sugars throughout the day/night blood-glucose,water resource engineering specialist,cont (Dexcom G6 Account Planner) Use to monitor blood sugars throughout the day/night clonidine HCl 0.1 mg PO DAILY duloxetine 60 mg PO DAILY duloxetine 90 mg PO DAILY FreeStyle Lancets (lancets) TID testing NS FreeStyle Lite Meter (blood-glucose meter) TID testing NS FreeStyle Lite Strips (blood sugar diagnostic) TID testing NS lisinopril 5 mg PO DAILY lorazepam 0.5 mg PO DAILY PRN metformin 500 mg orally 2 tabs am, 1 tab pm; 2 tabs am and 1 tab pm 90 days rosuvastatin 5 mg PO DAILY semaglutide 1 mg (0.75 mL) subcut QWEEK Tobacco use date assessed: 02/01/25 Dental Screening Dental Screen Date: 02/01/25 HPI 2 months f/up-telehealth HPI Details History of Present Illness The patient is a 45-year-old male presenting for follow-up and management of his psychiatric conditions. He has a history of anxiety, depression, and severe Attention-Deficit Disorder (ADD). His condition is reportedly improving with weekly therapy and medications prescribed by his previous psychiatrist, which include duloxetine, hydroxyzine PRN, and lorazepam PRN. The patient is currently out of work ([facility]). The patient is also a diabetic, with his most recent HbA1c at 6.6%, down from 7.0% at the last check. He is managing his condition with metformin, a GLP-1 agonist, and increased attention to his diet. He reports his eye exam is up to date and denies any neuropathies. He experiences frequent diarrhea, which may be a side effect of metformin. Additional history includes fatty liver and slightly elevated liver enzymes, which are being monitored. He denies any suicidal or homicidal ideation. Review of Systems - Psychiatric: Denies suicidal ideation and homicidal ideation. - Neurological: Denies neuropathies. - Gastrointestinal: Reports frequent diarrhea. Plan 1. Psychiatric Conditions (Anxiety, Depression, Add) The patient is showing improvement and appears more mentally stable. He will continue with his weekly therapy and current medications. He is scheduled to follow up with a new psychiatrist in July. He will be kept out of work until a planned return date of August 08. 2. Type 2 Diabetes Mellitus The patient's glycemic control is improving, with the most recent HbA1c trending down to 6.6%. He will continue with metformin, a GLP-1 agonist, and focus on his diet. There is a potential to discontinue metformin in the future due to gastrointestinal distress, specifically frequent diarrhea. 3. Elevated Liver Enzymes / Non-Alcoholic Fatty Liver Disease In light of a history of fatty liver, the patient's slightly elevated liver enzymes will continue to be monitored. Discussion Notes I discussed with the patient that he is showing good improvement with his mental health and appears more stable. We will continue to keep him out of work until August 08, and he will follow up with his new psychiatrist in July. I reviewed his favorable A1c trend, which is down to 6.6, and he will continue his focus on diet. We discussed that the frequent diarrhea he experiences may be due to metformin, and we may discontinue it in the future. I also informed him we will continue to watch the trend of his liver enzymes. Patient Instructions - Continue to see your therapist every week. - Keep your appointment with your new psychiatrist in July. - Plan to remain out of work until August 08. - Continue with your current medications: duloxetine, hydroxyzine as needed, and lorazepam as needed. - Continue to watch your diet to manage your diabetes. - Your lab tests for diabetes have improved, so keep up the good work. - We will continue to monitor your liver tests. [facility] Medical History Impingement of left shoulder ADHD Surgical History No pertinent past surgical history Social History Housing: House Patient Tobacco Use Status: Never used Tobacco e-Cigarette/Vaping Use: Never Used Second Hand Smoke Exposure: No service: No Current occupational status: employed Current occupation: [employer] Current occupational exposures/hazards: No Cognitive needs: No Hearing needs: No Vision needs: Yes Questionnaire Thrive Questionnaire Date Thrive assessed: 05/05/24 I am a: Patient What is your living situation today?: I have a steady place to live Within the past 12 months, did the food you bought not last and you didn't have the money to get more?: Never true Within the past 12 months, did you worry whether your food would run out before you got money to buy more?: Never true Do you have trouble paying for medicines?: No Do you have trouble getting transportation to medical appointments?: No Do you have trouble paying your heating and electricity bill?: No Do you have trouble taking care of your child, family member or friend?: No Do you have trouble with day-to-day activities such as bathing, preparing meals, shopping, managing finances, etc.?: No Are you currently unemployed and looking for a job?: I choose not to answer this question Are you interested in more education?: No Please select the resources that you would like help with: None Currently or been in a relationship where the following occur: No concerns reported THRIVE Score: 0 AUDIT C Alcohol Use Questionnaire (AUDIT-C) 2. How many drinks containing alcohol do you have on a typical day when you are drinking?: 1 or 2 3. How often do you have six or more drinks on one occasion?: Never Total Score: 0 DEAN-7 AMB Questionnaire DEAN-7 Date DEAN - 7 assessed: 05/05/24 Source: Developed by Drs. Matt Nicholson, Britt Guillermo, Adis Alvarez and colleagues, with an educational sandy from [employer]. Physical exam (Primary Care) Tobacco/Smoking Status: Tobacco use Status Tobacco use date assessed 02/01/25 04/14/25 07:31 Patient Tobacco Use Status Never used Tobacco 04/14/25 07:31 e-Cigarette/Vaping Use Never Used 04/14/25 07:31 Thrive Assessment: Date of Thrive Assessment Date Thrive assessed 05/05/24 04/14/25 07:31 Currently or been in a relationship where the following occur: No concerns reported Telehealth Telehealth Telehealth [facility]: [facility] Location of provider rendering services: practice address Location of patient: address on file Patient Identification confirmed using: Name, : Yes Telehealth method: video Patient verbally consented to treatment: Yes Patient verbally consented to billing insurance company: Yes Patient informed of any privacy concerns related to visit: Yes Minutes spent on Phone/Video with Pt.: 22 Coding Level of Care Code Tele Est Pt Level 4 (56673) Diagnoses Diabetes E11.9 Anxiety and depression F41.9; F32.9 Assessment & Plan Assessment & Plan (1) Diabetes: Code(s): E11.9 - Type 2 diabetes mellitus without complications Category: Medical (2) Anxiety and depression: Code(s): F41.9 - Anxiety disorder, unspecified; F32.9 - Major depressive disorder, single episode, unspecified Category: Medical Plan . Orders: Orders Complete Blood Count Auto Diff Today F32.9 - Major depressive disorder, single episode, unspecified, F41.9 - Anxiety disorder, unspecified Comprehensive Met. Panel Today F32.9 - Major depressive disorder, single episode, unspecified, F41.9 - Anxiety disorder, unspecified Cortisol Random Today F32.9 - Major depressive disorder, single episode, unspecified, F41.9 - Anxiety disorder, unspecified
--- OUTSIDE RECORDS SUMMARY | 2025-06-22 14:58 | XMS_ITS | Clinical Summary ---
Author Organization [facility] Address [address] [place] [id number] Phone Care Team Providers Care Needle Felt Making Machine Operator Name Role Phone Chad Sawyer [...] mcg by mouth daily. 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 Not on file Not [...] 06/08/2020, 05/04/2019, Additional history exists COVID-19 VACCINE (2024- season) 2025 05/23/2021, 05/23/2021, 11/19/2020, Additional history [...] EDT) SODIUM 144 133 - 146 mmol/L [facility] POTASSIUM 4.2 3.3 - 5.1 mmol/L [facility] CHLORIDE 104 96 - 108 mmol/L [facility] CO2 30 21 - 35 mmol/L [facility] BUN 14 6 - 19 mg/dL [facility] CREATININE 0.70 0.5 - 1.5 mg/dL [facility] GLUCOSE 105(H) 70 - 99 mg/dL [facility] ALBUMIN 4.6 3.9 - 4.8 g/dL [facility] TOTAL PROTEIN 7.5 6.5 - 8.0 g/dL [facility] CALCIUM 9.9 8.4 - 10.3 mg/dL [facility] ALKALINE PHOSPHATASE 89 39 - 117 U/L [facility] TOTAL BILIRUBIN 0.6 0.0 - 1.2 mg/dL [facility] AST 30 0 - 37 U/L [facility] ALT 47(H) 0 - 40 U/L [facility] GLOBULIN 2.9 1 - 4.8 g/dL [facility] EGFR >120 >59 mL/min/1.7 3m2 [facility] Comment:If patient is black, multiply result by 1.159. The eGFR calculation has changed from the MDRD equation to the CKD-EPI equation as of October 07, 2017. ANION GAP 14 10 - 20 mmol/L [facility] Blood 10/21/2017 10:0 7 AM EDT 10/21/2017 10:10 AM EDT [facility] LAB BLOOD BKR ORDERABLES Final Result [address] [address] * (ABNORMAL) Lipid panel (10/21/2017 10:07 AM EDT) HDL 46 mg/dL [facility] Comment: Interpretation: Risk Level Males Decreased >45 mg/dL Average 40-45 mg/dL Increased <40 mg/dL CHOLESTEROL 129 0 - 240 mg/dL [facility] TRIGLYCERIDES 85 30 - 160 mg/dL [facility] LDL 66 50 - 129 mg/dL [facility] Comment: LDL levels in terms of risk for coronary heart disease: <100 mg/dL: Optimal 100-129 mg/dL: Near or above optimal 130-159 mg/dL: Borderline high 160-189 mg/dL: High >190 mg/dL: Very High CARDIAC RISK RATIO 2.8(L) 3.4 - 5.0 [facility] Blood 10/21/2017 10:0 7 AM EDT 10/21/2017 10:10 AM EDT [facility] LAB BLOOD BKR ORDERABLES Final Result Performing Organization Address City/[facility]/ZIP Co de Phone Number [address] [address] from Last 3 Months or Most Recently Relevant to Health Maintenance Insurance [facility] [place] [address] [place] [address] [place] [address] [facility] Address: [facility] [id number] [place] [phone] Care Teams Needle Felt Making Machine Operator Relationship Specialty Start Date End Date Jeramie Awad NP [facility] [place] [address] PCP - General Family Medicine 05/15/22 Chad Sawyer MD [email or web address] Internal Medicine 10/21/17 Additional Source Comments The information contained in this document represents components of the legal health record. It is not the complete legal health record.[facility]
== END 2025-06-22 08:25 | disposition home or self-care (01) ==
LOC: HO.HMCC 06:45
PROVIDERS: PCP Nurse Practitioner Family; Visit Provider Nurse Practitioner Family
DX: E11.9 Type 2 diabetes mellitus without complications (principal); F41.9 Anxiety disorder, unspecified; F32.9 Major depressive disorder, single episode, unspecified

== ENCOUNTER 2025-07-26 09:59 | Outpatient (REF) | payer BC, SELFPAY ==
--- OUTSIDE RECORDS SUMMARY | 2020-03-19 09:40 | XMS_ITS | Encounter Summary ---
Author Organization [facility] Address [address] [facility] [address] [place] [phone] Phone Care Team Providers Care Book Jacket Cover Machine Operator Name Role Phone Chad Sawyer MD Unavailable [phone] Unknown, Unknown Primary Care Provider Rylee roberto Encounter Details Date Type Department Care Team (Late st Contact Info) Description 03/19/2020 10:40 AM EDT Hospital Encounter [facility] [address] [place] [phone] Carlie Bernstein CNP [address] [place] [phone] [email or web address] Social History Tobacco Use Types Packs/Day Years Used Date Smoking Tobacco: Never Smokeless Tobacco: Never Alcohol Use Standard Drinks/Week Comments Yes 2 (1 standard drink = 0.6 oz pur e alcohol) Education Answer Date Recorded Are you interested in more education? Not on mena e 11/29/2022 Are you concerned about learning? Not on file 11/29/2022 No 11/29/2022 No 11/29/2022 Digital Access Answer Date Recorded No 12/31/2022 No 12/31/2022 No 12/31/2022 Reliable internet access at home? Not on file 12/31/2022 Device with a working camera? 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 POS [id number] Narrative 03/19/2020 10:56 AM EDT 3 views. No comparison Nondisplaced oblique fracture distal shaft fifth metatarsal. No other bony injury No significant arthritic changes. Small posterior and plantar calcaneal spurs. Procedure Note Miller Jiang MD - 03/19/2020 3 views. No comparison Nondisplaced oblique fracture distal shaft fifth metatarsal. No other bony injury No significant arthritic changes. Small posterior and plantar calcaneal spurs. IMPRESSION: Nondisplaced distal fifth metatarsal shaft fracture. POS [id number] Carlie Bernstein PHYSICAL THERAPY AIDE IMG XR LOWER EXTREMITY Maxine l Result documented in this encounter Visit Diagnoses Not on filedocumented in this encounter Additional Health Concerns Assessment Noted Time PHQ-2 Depression Total Score: 0 10/21/19 18 3:26 PM EDT documented as of this encounter Care Teams Book Jacket Cover Machine Operator Relationship Specialty Start Date End Date Unknown, Unknown, PCP - General 03/19/20 05/14/22 Chad Sawyer MD [email or web address] Internal Medicine 10/21/17 documented as of this encounter Additional Source Comments The information contained in this document represents components of the legal health record. It is not the complete legal health record.[facility]
--- OUTSIDE RECORDS SUMMARY | 2025-07-26 10:55 | XMS_ITS | Clinical Summary ---
Author Organization [facility] Address [address] [place] [phone] Phone Care Team Providers Care Installation Supervisor Name Role Phone Chad Sawyer MD Unavailable [...] mcg by mouth daily. 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 POTASSIUM 4.2 3.3 - 5.1 mmol/L [facility] CHLORIDE 104 96 - 108 mmol/L [facility] CO2 30 21 - 35 mmol/L [facility] BUN 14 6 - 19 mg/dL [facility] CREATININE 0.70 0.5 - 1.5 mg/dL [facility] GLUCOSE 105(H) 70 - 99 mg/dL [facility] ALBUMIN 4.6 3.9 - 4.8 g/dL [facility] TOTAL PROTEIN 7.5 6.5 - 8.0 g/dL [facility] CALCIUM 9.9 8.4 - 10.3 mg/dL [facility] ALKALINE PHOSPHATASE 89 39 - 117 U/L [facility] TOTAL BILIRUBIN 0.6 0.0 - 1.2 mg/dL [facility] AST 30 0 - 37 U/L [facility] ALT 47(H) 0 - 40 U/L [facility] GLOBULIN 2.9 1 - 4.8 g/dL [facility] EGFR >120 >59 mL/min/1.7 3m2 [facility] Comment:If patient is black, multiply result by 1.159. The eGFR calculation has changed from the MDRD equation to the CKD-EPI equation as of October 07, 2017. ANION GAP 14 10 - 20 mmol/L [facility] Blood 10/21/2017 10:0 7 AM EDT 10/21/2017 10:10 AM EDT [facility] LAB BLOOD BKR ORDERABLES Final Result [address] [address] * (ABNORMAL) Lipid panel (10/21/2017 10:07 AM EDT) HDL 46 mg/dL [facility] Comment: Interpretation: Risk Level Males Decreased >45 mg/dL Average 40-45 mg/dL Increased <40 mg/dL CHOLESTEROL 129 0 - 240 mg/dL [facility] TRIGLYCERIDES 85 30 - 160 mg/dL [facility] LDL 66 50 - 129 mg/dL [facility] Comment: LDL levels in terms of risk for coronary heart disease: <100 mg/dL: Optimal 100-129 mg/dL: Near or above optimal 130-159 mg/dL: Borderline high 160-189 mg/dL: High >190 mg/dL: Very High CARDIAC RISK RATIO 2.8(L) 3.4 - 5.0 C [facility] Blood 10/21/2017 10:0 7 AM EDT 10/21/2017 10:10 AM EDT [facility] LAB BLOOD BKR ORDERABLES Final Result Performing Organization Address City/[facility]/ZIP Co de Phone Number [address] [phone] from Last 3 Months or Most Recently Relevant to Health Maintenance Insurance [facility] [place] [address] [place] [address] [place] [address] [facility] HMO [facility]ENTAL [facility] Address[facility] [id number] [place] [phone] Care Teams Installation Supervisor Relationship Specialty Start Date End Date Jeramie Awad NP [facility] [place] [address] PCP - General Family Medicine 05/15/22 Chad Sawyer MD [email or web address] Medicine 10/21/17 Additional Source Comments The information contained in this document represents components of the legal health record. It is not the complete legal health record.[facility]
[2025-07-26 13:42] LABS: MANUAL DIFF FLAG NO
[2025-07-26 14:00] LABS: Hematocrit 47.9 % (42.0-52.0); Hemoglobin 16.0 g/dl (14.0-18.0); Imm Gran Abs Auto 0.01 X10*3/uL (0.00-0.03); Imm Gran Pct Auto 0.2 % (0.0-0.4); Lymphocytes Absolute Auto 1.9 X10*3/uL (1.2-4.9); Mean Corpuscular HGB Conc 33.4 g/dl (31.0-36.0); Mean Corpuscular Hemoglobin 28.7 pg (27.0-33.0); Mean Corpuscular Volume 86.0 fL (80.0-98.0); NRBC Abs Auto 0.000 X10*3/uL (0.0-0.012); NRBC Pct Auto 0.0 /100WBC (0.0-0.2); Platelet Count 201 X10*3/uL (160-400); Red Blood Count 5.57 X10*6/uL (4.60-5.80); White Blood Count 5.1 X10*3/uL (4.8-10.8)
[2025-07-26 14:10] LABS: Alanine Aminotransferase 60 U/L (0-40); Albumin Level 4.8 g/dL (3.5-5.0); Alkaline Phosphatase 61 U/L (39-117); Anion Gap 12 (12-20); Aspartate Amino Transferase 45 U/L (5-37); Blood Urea Nitrogen 12 mg/dL (9-16); Calcium 10.2 mg/dL (8.4-10.2); Carbon Dioxide 28 mmol/L (22-29); Chloride 103 mmol/L (96-108); Estimated Glomerular Filt Rate > 60; Potassium 4.9 mmol/L (3.3-5.1); Sodium 138 mmol/L (135-145); Total Protein 7.0 g/dL (6.5-8.0)
== END 2025-07-26 10:00 | disposition home or self-care (01) ==
LOC: HO.HMGCLDS 09:59
PROVIDERS: PCP Nurse Practitioner Family; Visit Provider Nurse Practitioner Family
DX: F41.9 Anxiety disorder, unspecified (principal); F32.9 Major depressive disorder, single episode, unspecified
CPT/HCPCS: 36415; 80053; 82533; 85025